=== PATIENT | male | born 1950 | race Caucasian/White ===

== ENCOUNTER 2018-03-15 10:58 | Inpatient (IN) | payer BC, OTHER ==
[2018-03-15] MEDS ORDERED: SODIUM CHLORIDE 0.9% 500 ML INFUS.BAG IV ONE (11:06)
--- NOTE | 2018-03-15 11:33 | PDOC ---
History of Present Illness - General History Source: Patient Exam Limitations: No Limitations - History of Present Illness Initial Comments: 03/15/18 13:01 67 yo M with no past medical hx (hasn't seen a doctor in 15-20 years) presents to the emergency department with worsening epigastric and RUQ abdominal pain. Per the patient, he has had epigastric pain over the past 3 weeks that has been intermittent and "acidic" in feeling. However, he had a quality change in pain this morning at approximately 8am. Per the patient, the pain was 10/10, sharp, located in the epigastric and RUQ without radiation, with minimal relief with omeprazole and pepto-bismal. Per the patient, he is unsure if eating or not eating aggravated or relieved his pain. Denies a hx of gallstones and pancreatitis. Patient denies the following: fever, chills, nausea, vomiting, dysuria, hematuria, diarrhea, and leg pain/swelling. No recent travels. Pmhx: None Shx: None Meds: None Allergies: NKDA Social: Endorses tobacco use. Denies alcohol and substance abuse. <Jovan Crews - Last Filed: 03/16/18 10:36> <Yoly Bill - Last Filed: 03/18/18 22:18> - General Chief Complaint: Pain Stated Complaint: ABDOMINAL PAIN 3 DAY WORSENING LAST 2 HOURS Time Seen by Provider: 03/15/18 11:05 Past History - Past Medical History COPD: Yes Other medical history: PROSTATIS - Suicide/Smoking/Psychosocial Hx Smoking History: Current every day smoker Have you smoked in the past 12 months: Yes Number of Cigarettes Smoked Daily: 10 Information on smoking cessation initiated: Yes Hx Alcohol Use: Yes (RARE) Drug/Substance Use Hx: No <oJvan Crews - Last Filed: 03/16/18 10:36> <Yoly Bill - Last Filed: 03/18/18 22:18> - Past Medical History Allergies/Adverse Reactions: Allergies Allergy/AdvReac Type Severity Reaction Status Date / Time No Known Allergies Allergy Verified 03/15/18 17:06 Home Medications: Ambulatory Orders Dextrose 5%-0.45% Saline [D5-1/2Ns -] 1,000 ml IV ASDIR #1 ml 03/16/18 Piperacillin/Tazob 3.375 gm [Zosyn -] 3.375 gm IVPB Q8H-IV vial 03/16/18 oxyCODONE HCL [Roxicodone -] 5 mg PO Q4H PRN #30 tablet MDD 6 03/16/18 Review of Systems - Review of Systems Able to Perform ROS?: Yes Is the patient limited O[place]i proficient: No Constitutional: No: Chills, Diaphoresis, Fever HEENTM: No: Recent change in vision, Ear Pain, Nose Pain, Throat Pain, Mouth Pain Respiratory: No: Cough, Shortness of Breath, SOB with Exertion, Hemoptysis Cardiac (ROS): No: Chest Pain, Lightheadedness, Palpitations, Syncope, Chest Tightness ABD/GI: Yes: Abdominal cramping. No: Constipated, Diarrhea, Nausea, Poor Appetite, Poor Fluid Intake, Rectal Bleeding, Vomiting, Tarry Stools : No: Burning, Dysuria, Hematuria, Urgency Musculoskeletal: No: Back Pain, Gout, Joint Pain, Neck Pain Integumentary: No: Erythema, Flushing, Lesions, Lumps, Rash Neurological: No: Headache, Numbness, Tingling, Tremors, Ataxia, Dizziness Psychiatric: No: Stressors Endocrine: No: Unexplained Weight Gain Hematologic/Lymphatic: No: Anemia <Jovan Crews - Last Filed: 03/16/18 10:36> *Physical Exam - Vital Signs Last Vital Signs Temp Pulse Resp BP Pulse Ox 98.9 F 74 20 136/76 96 03/15/18 11:00 03/15/18 11:00 03/15/18 11:00 03/15/18 11:00 03/15/18 11:00 - Physical Exam General Appearance: Yes: Nourished, Appropriately Dressed. No: Apparent Distress, Intoxicated HEENT: positive: EOMI, LARA, Normal ENT Inspection, Normal Voice, Symmetrical, Pharynx Normal, Hearing Grossly Normal. negative: Pale Conjunctivae, Scleral Icterus (R), Scleral Icterus (L), Muffled/Hoarse voice, Pharyngeal Erythema, Tonsillar Exudate, Tonsillar Erythema, Nasal Congestion, Sinus Tenderness, Excessive drooling Neck: positive: Trachea midline. negative: Tender, Lymphadenopathy (R), Lymphadenopathy (L), Tender lateral, Tender midline Respiratory/Chest: positive: Lungs Clear, Normal Breath Sounds. negative: Chest Tender, Respiratory Distress, Accessory Muscle Use, Crackles, Rales, Rhonchi, Stridor, Wheezing, Hyperresonant Cardiovascular: positive: Regular Rhythm, Regular Rate, S1, S2. negative: Systolic Murmur Gastrointestinal/Abdominal: positive: Normal Bowel Sounds, Tender (epigastric and RUQ. Positive murphys), Flat, Soft. negative: Distended, Rebound, Mass Lymphatic: negative: Adenopathy Musculoskeletal: positive: Normal Inspection. negative: CVA Tenderness, Vertebral Tenderness Extremity: positive: Normal Capillary Refill, Normal Inspection, Normal Range of Motion. negative: Tender Integumentary: positive: Normal Color, Dry, Warm Neurologic: positive: pan operator II-XII NML intact, Fully Oriented, Alert, Normal Mood/ Affect, Normal Response, Motor Strength 5/5. negative: EOM Palsy, Sensory Deficit <Jovan Crews - Last Filed: 03/16/18 10:36> - Vital Signs Last Vital Signs Temp Pulse Resp BP Pulse Ox 98.7 F 58 L 17 142/71 96 03/16/18 14:00 03/16/18 14:00 03/16/18 14:00 03/16/18 14:00 03/16/18 14:00 <Yoly Bill - Last Filed: 03/18/18 22:18> Moderate Sedation - Procedure Monitoring Vital Signs: Procedure Monitoring Vital Signs Temperature 98.9 F 03/15/18 11:00 Pulse Rate 74 03/15/18 11:00 Respiratory Rate 20 03/15/18 11:00 Blood Pressure 136/76 03/15/18 11:00 O2 Sat by Pulse Oximetry (%) 96 03/15/18 11:00 <Jovan Crews - Last Filed: 03/16/18 10:36> - Procedure Monitoring Vital Signs: Procedure Monitoring Vital Signs Temperature 98.7 F 03/16/18 14:00 Pulse Rate 58 L 03/16/18 14:00 Respiratory Rate 17 03/16/18 14:00 Blood Pressure 142/71 03/16/18 14:00 O2 Sat by Pulse Oximetry (%) 96 03/16/18 14:00 <Yoly Bill - Last Filed: 03/18/18 22:18> ED Treatment Course - LABORATORY CBC & Chemistry Diagram: 03/16/18 07:35 03/16/18 07:35 <Jovan Crews - Last Filed: 03/16/18 10:36> - LABORATORY CBC & Chemistry Diagram: 03/16/18 07:35 03/16/18 07:35 - ADDITIONAL ORDERS Additional order review: 03/15/18 11:42 RBC 4.48 MCV 89.4 MCHC 32.6 RDW 12.6 MPV 8.3 Neutrophils % No Result Required. Lymphocytes % No Result Required. - Medications Given in the ED: ED Medications Discontinued Medications Generic Name Dose Route Start Last Admin Trade Name Freq PRN Reason Stop Dose Admin Ceftriaxone Sodium 1,000 mg/ 50 mls @ 100 mls/hr 03/15/18 14:14 03/15/18 15: 25 Dextrose IVPB 03/15/18 14:43 100 mls/hr ONCE ONE Administration Metronidazole 500 mg in 100 mls @ 100 mls/hr 03/15/18 14:14 03/15/18 14:28 Flagyl 500mg Premixed Ivpb - IVPB 03/15/18 15:13 100 mls/hr ONCE ONE Administration Dextrose/Sodium Chloride 1,000 mls @ 125 mls/hr 03/15/18 16:30 03/16/18 18:27 D5-1/2ns - IV 125 mls/hr ASDIR SHAMA Administration Metronidazole 500 mg in 100 mls @ 100 mls/hr 03/15/18 22:00 03/16/18 18:26 Flagyl 500mg Premixed Ivpb - IVPB 100 mls/hr Q8H-IV SHAMA Administration Ceftriaxone Sodium 50 mls @ 100 mls/hr 03/16/18 10:00 03/16/18 10:08 Ceftriaxone 1 Gm-D5w Bag IVPB 100 mls/hr DAILY SHAMA Administration Protocol Piperacillin Sod/Tazobactam 50 mls @ 100 mls/hr 03/16/18 18:00 03/16/18 18:26 Sod 3.375 gm/ Dextrose IVPB 100 mls/hr Q8H-IV SHAMA Administration Protocol Oxycodone HCl 5 mg 03/16/18 13:22 03/16/18 13:29 Roxicodone - PO 5 mg Q4H PRN Administration PAIN LEVEL 6-10 Sodium Chloride 1,000 ml 03/15/18 11:06 03/15/18 12:19 Normal Saline - IV 03/15/18 11:07 1,000 ml ONCE ONE Administration <Yoly Bill - Last Filed: 03/18/18 22:18> Medical Decision Making - Medical Decision Making 67 yo M with no past medical hx (hasn't seen a doctor in 15-20 years) presents to the emergency department with worsening epigastric and RUQ abdominal pain. Initial vitals: Initial Vital Signs Temp Pulse Resp BP Pulse Ox 98.9 F 74 20 136/76 96 03/15/18 11:00 03/15/18 11:00 03/15/18 11:00 03/15/18 11:00 03/15/18 11:00 Work up: ddx: cholelithiasis, cholecystitis, nephrolithiasis, pyelo, GERD, pancreatitis, gastritis, ACS, UTI, SBO, hernia, AAA. Laboratory Tests 03/15/18 03/15/18 03/15/18 11:42 11:42 11:42 WBC 14.2 H RBC 4.48 Hgb 13.1 Hct 40.1 MCV 89.4 MCH 29.2 MCHC 32.6 RDW 12.6 Plt Count 262 MPV 8.3 Absolute Neuts (auto) 10.0 Neutrophils % No Result Required. Neutrophils % (Manual) 77.0 Lymphocytes % No Result Required. Lymphocytes % (Manual) 16.0 Monocytes % (Manual) 5 Eosinophils % (Manual) 2.0 Platelet Estimate Adequate Sodium 138 Potassium 3.9 Chloride 105 Carbon Dioxide 23 Anion Gap 10 BUN 22 H Creatinine 1.1 Creat Clearance w eGFR > 60 Random Glucose 168 H Lactic Acid 1.9 Calcium 9.2 Total Bilirubin 2.4 H AST 178 H ALT 92 H Alkaline Phosphatase 340 H Creatine Kinase Troponin I Total Protein 6.4 Albumin 3.4 L Lipase 142 03/15/18 03/15/18 11:42 11:42 WBC RBC Hgb Hct MCV MCH MCHC RDW Plt Count MPV Absolute Neuts (auto) Neutrophils % Neutrophils % (Manual) Lymphocytes % Lymphocytes % (Manual) Monocytes % (Manual) Eosinophils % (Manual) Platelet Estimate Sodium Potassium Chloride Carbon Dioxide Anion Gap BUN Creatinine Creat Clearance w eGFR Random Glucose Lactic Acid Calcium Total Bilirubin AST ALT Alkaline Phosphatase Creatine Kinase 45 Troponin I 0.03 Total Protein Albumin Lipase This is a gentlemen appearing well with no vital sign abnormalities. The patients labs show WBC elevation of 14.2 with elevated LFT values. CXR did not show acute pathologies. patient has a positive murphys sign and was sent for an abdominal ultrasound that showed gallbladder thickening, edema, a 2.9 cm stone with concerns for cholecystitis. 03/15/18 14:36 Dr. Gregg was contacted for surgery consult. Wants ID consult and MRCP to be done Patient to be admitted for further evaluation and management of acute cholecystitis. started ceftriaxone and metronidazole Dispo: Admitted. <Jovan Crews - Last Filed: 03/16/18 10:36> *DC/Admit/Observation/Transfer <Jovan Crews - Last Filed: 03/16/18 10:36> <Yoly Bill - Last Filed: 03/18/18 22:18> Diagnosis at time of Disposition: Cholecystitis - Discharge Dispostion Disposition: TRANSFER ACUTE CARE/OTHER HOSP Condition at time of disposition: Stable
[2018-03-15 11:56] LABS: HEMATOCRIT 40.1 % (35.4-49); RBC 4.48 M/mm3 (4.00-5.60)
[2018-03-15 12:02] LABS: HEMOGLOBIN 13.1 GM/dl (11.7-16.9); MCH 29.2 pg (25.7-33.7); MCHC 32.6 g/dl (32.0-35.9); MEAN CELL VOLUME 89.4 fl (80-96); MEAN PLT VOLUME 8.3 fl (7.5-11.1); PLATELET COUNT 262 K/MM3 (134-434); RDW 12.6 % (11.9-15.9); WHITE BLOOD COUNT 14.2 K/mm3 (4.0-10.8)
[2018-03-15 12:10] LABS: ALBUMIN 3.4 g/dl (3.5-5.0); ALK PHOS 340 U/L (32-92); ANION GAP 10 MMOL/L (8-16); BILIRUBIN,TOTAL 2.4 mg/dl (0.2-1.0); BLOOD UREA NITROGEN 22 mg/dl (7-18); CALCIUM 9.2 mg/dl (8.4-10.2); CHLORIDE 105 mmol/L (98-107); CO2 23 mmol/L (22-28); CREATININE 1.1 mg/dl (0.6-1.3); GLUCOSE,RANDOM 168 mg/dl (74-106); POTASSIUM 3.9 mmol/L (3.5-5.1); SGOT/AST 178 U/L (10-42); SGPT/ALT 92 U/L (10-40); SODIUM 138 mmol/L (136-145); TOT PROT 6.4 g/dl (6.4-8.3)
[2018-03-15 12:33] LABS: PLATELET ESTIMATE ADEQUATE
--- NOTE | 2018-03-15 13:15 | PDOC ---
Attending Attestation - Resident Resident Name: MarsJovan - ED Attending Attestation I have performed the following: I have examined & evaluated the patient, The case was reviewed & discussed with the resident, I agree w/resident's findings & plan - HPI HPI: 03/15/18 13:12 MARGARET is a 67 YOM with no known medical history presenting with epigastric /RUQ abdominal pain, a/w constipation x 3 days. No fever or chills, no vomiting/ diarrhea, dysuria or diarrhea. No PMD. no surgical history. +smoking - Physicial Exam PE: 03/15/18 13:13 NAD, well appearing, PERRL, EOMI, MMM, nl conjunctiva, anicteric; neck supple. lungs clear, RRR, abdomen soft +Sanchez's sign, +epigastric TTP. no rebound or guarding. NO CVAT.. MAST x4, no focal neuro deficits. No peripheral edema. normal color for ethnicity, WWP. - Medical Decision Making 03/15/18 13:13 See HPI for details DDx abdominal pain: Renal colic, biliary colic, metabolic/electrolyte derangements. GERD, PUD, esophageal spasm, pancreatitis, hepatitis, constipation , colitis, gastroenteritis, cholecystitis, UTI, pyelonephritis, ileus, SBO, medication side effect, hernia, appendicitis, diverticulitis, mesenteric ischemia. AAA. Vital signs reviewed, wnl. no fever, declines analgesia meds for now laboratory results and imaging reviewed, basic labs remarkable for leukocytosis of 14K, Cr/lytes normal. LFTs/bili elevated, with AST>ALT, however , no etoh use history. CXR_clear EKG normal sinus rhythm, no interval abnormalities, narrow QRS, ST and T wave segments and morphology normal. Nonspecific T wave abnormalities trop neg, less likely cardiac/ACS ED course: concerns for sx cholelithiasis vs cholecystitis. RUQ/abdomen US: with obstructed large stones at gallbladder neck with pericystic fluid/wall edema. aorta diameter<3cm, so unlikely AAA/vascular. IV fluids and IV abx with ceftriaxone/flagyl for empiric coverage. keeping NPO. surgery cs with Dr Gregg for acute management/surgery. would like MRCP, GI/ID cs as inpatient. Dispo: Admit to medicine for acute cholecystitis, surgery cs.. Discussed results and management plan with pt and family member at bedside, agree with impression and plan 03/15/18 15:30 Heart Score/ECG Review - ECG Impressions Normal ECG: Yes Comment:: 03/15/18 13:14 EKG normal sinus rhythm, no interval abnormalities, narrow QRS, ST and T wave segments and morphology normal. Nonspecific T wave abnormalities
[2018-03-15] MEDS ORDERED: CEFTRIAXONE 1,000 MG in DEXTROSE 5%-WATER - 50 ML IVPB ONE (14:14)
[2018-03-15] MEDS ORDERED: cefTRIAXone SODIUM 1 GM VIAL ONE (14:18)
[2018-03-15 14:56] LABS: URINE APPEARANCE Clear; URINE BILIRUBIN Negative (NEGATIVE); URINE COLOR Amber; URINE GLUCOSE (UA) Negative (NEGATIVE); URINE KETONE Negative (NEGATIVE); URINE LEUK ESTERASE TRACE (NEGATIVE); URINE NITRITE Negative (NEGATIVE); URINE PROTEIN Negative (NEGATIVE)
[2018-03-15 15:45] LABS: URINE WBC 0-2 (0-2)
--- NOTE | 2018-03-15 16:00 | HP ---
CHIEF COMPLAINT: Severe abdominal pain this morning for 40 minutes. PCP: None - has not seen a health care provider in 15-20 years HISTORY OF PRESENT ILLNESS: 67 year-old male with no reported PMH presented to the ED today after acute onset of RUQ abdominal pain. The pain started this morning and continued until patient arrived in ED. Pain lasted 40 minutes, resolved spontaneously, and has not recurred. Patient has had episodes of abdominal pain, not as severe, over the past 3-4 weeks. There has been no associated nausea or vomiting. Patient does not relate the pain to food intake or lack thereof. Patient denies fever, sweats, chills. Had two episodes of diarrhea three days ago. ER course was notable for: (1) WBC 14.2k (2) Total bili 2.4, AST/ALT/Alk Phos 178/92/340, lipase 142 Recent Travel: [place] - October 2017 [place] - November 2017 PAST MEDICAL HISTORY: None reported PAST SURGICAL HISTORY: None reported Social History: lives with Smoking: current every day x 30 years Alcohol: rare Drugs: no Family History: Allergies No Known Allergies Allergy (Unverified 03/15/18 11:01). HOME MEDICATIONS: Home Medications Medication Instructions Recorded Omeprazole 1 cap PO PRN 03/15/18 Pepto-Bismol - 1 tsp PO PRN PRN 03/15/18 REVIEW OF SYSTEMS CONSTITUTIONAL: Absent: fever, chills, diaphoresis, generalized weakness, malaise, loss of appetite, weight change HEENT: Absent: rhinorrhea, nasal congestion, throat pain, throat swelling, difficulty swallowing, mouth swelling, ear pain, eye pain, visual changes CARDIOVASCULAR: Absent: chest pain, syncope, palpitations, irregular heart rate, lightheadedness , peripheral edema RESPIRATORY: Absent: cough, shortness of breath, dyspnea with exertion, orthopnea, wheezing, stridor, hemoptysis GASTROINTESTINAL: +abdominal pain Absent: abdominal distension, nausea, vomiting, diarrhea, constipation, melena, hematochezia GENITOURINARY: Absent: dysuria, frequency, urgency, hesitancy, hematuria, flank pain, genital pain MUSCULOSKELETAL: Absent: myalgia, arthralgia, joint swelling, back pain, neck pain SKIN: Absent: rash, itching, pallor HEMATOLOGIC/IMMUNOLOGIC: Absent: easy bleeding, easy bruising, lymphadenopathy, frequent infections ENDOCRINE: Absent: unexplained weight gain, unexplained weight loss, heat intolerance, cold intolerance NEUROLOGIC: Absent: headache, focal weakness or paresthesias, dizziness, unsteady gait, seizure, mental status changes, bladder or bowel incontinence PSYCHIATRIC: Absent: anxiety, depression, suicidal or homicidal ideation, hallucinations. PHYSICAL EXAMINATION Vital Signs - 24 hr 03/15/18 03/15/18 03/15/18 11:00 12:20 15:34 Temperature 98.9 F 98.5 F Pulse Rate 74 Pulse Rate [ 62 68 Left Superficial Temporal] Respiratory 20 18 16 Rate Blood Pressure 136/76 Blood Pressure 112/67 108/68 [Left Arm] O2 Sat by Pulse 96 99 Oximetry (%) GENERAL: Awake, alert, and fully oriented, in no acute distress. HEAD: Normal with no signs of trauma. EYES: Pupils equal, round and reactive to light, extraocular movements intact, sclera anicteric, conjunctiva clear. No lid lag. EARS, NOSE, THROAT: Ears normal, nares patent, oropharynx clear without exudates. Moist mucous membranes. NECK: Normal range of motion, supple without lymphadenopathy, JVD, or masses. LUNGS: Breath sounds equal, clear to auscultation bilaterally. No wheezes, and no crackles. No accessory muscle use. HEART: Regular rate and rhythm, normal S1 and S2 without murmur, rub or gallop. ABDOMEN: Soft, mild RUQ tenderness MUSCULOSKELETAL: Normal range of motion at all joints. No bony deformities or tenderness. No CVA tenderness. UPPER EXTREMITIES: 2+ pulses, warm, well-perfused. No cyanosis. No clubbing. No peripheral edema. LOWER EXTREMITIES: 2+ pulses, warm, well-perfused. No calf tenderness. No peripheral edema. NEUROLOGICAL: Cranial nerves II-XII intact. Normal speech. Laboratory Results - last 24 hr 03/15/18 03/15/18 03/15/18 11:42 11:42 11:42 WBC 14.2 H RBC 4.48 Hgb 13.1 Hct 40.1 MCV 89.4 MCH 29.2 MCHC 32.6 RDW 12.6 Plt Count 262 MPV 8.3 Absolute Neuts (auto) 10.0 Neutrophils % No Result Required. Neutrophils % (Manual) 77.0 Lymphocytes % No Result Required. Lymphocytes % (Manual) 16.0 Monocytes % (Manual) 5 Eosinophils % (Manual) 2.0 Platelet Estimate Adequate Sodium 138 Potassium 3.9 Chloride 105 Carbon Dioxide 23 Anion Gap 10 BUN 22 H Creatinine 1.1 Creat Clearance w eGFR > 60 Random Glucose 168 H Lactic Acid 1.9 Calcium 9.2 Total Bilirubin 2.4 H AST 178 H ALT 92 H Alkaline Phosphatase 340 H Creatine Kinase Troponin I Total Protein 6.4 Albumin 3.4 L Urine Color Urine Appearance Urine pH Ur Specific [place] Urine Protein Urine Glucose (UA) Urine Ketones Urine Blood Urine Nitrite Urine Bilirubin Urine Urobilinogen Ur Leukocyte Esterase Urine RBC Urine WBC 03/15/18 03/15/18 03/15/18 11:42 11:42 14:51 WBC RBC Hgb Hct MCV MCH MCHC RDW Plt Count MPV Absolute Neuts (auto) Neutrophils % Neutrophils % (Manual) Lymphocytes % Lymphocytes % (Manual) Monocytes % (Manual) Eosinophils % (Manual) Platelet Estimate Sodium Potassium Chloride Carbon Dioxide Anion Gap BUN Creatinine Creat Clearance w eGFR Random Glucose Lactic Acid Calcium Total Bilirubin AST ALT Alkaline Phosphatase Creatine Kinase 45 Troponin I 0.03 Total Protein Albumin Urine Color Trish Urine Appearance Clear Urine pH 6.0 Ur Specific [place] 1.010 Urine Protein Negative Urine Glucose (UA) Negative Urine Ketones Negative Urine Blood Negative Urine Nitrite Negative Urine Bilirubin Negative Urine Urobilinogen 1.0 Ur Leukocyte Esterase Trace H Urine RBC No Result Required. Urine WBC 0-2 ASSESSMENT/PLAN: 67 year-old male with no reported significant PMH, admitted for abdominal pain, cholelithiasis, hyperbilirubinemia, and elevated transaminases. Abdominal pain Cholelithiasis --03/15 US abdomen: thick-walled gallbladder with multiple calculi; acute cholecystitis cannot be ruled out --03/15 MRCP: done, pending dictation --afebrile, elevated WBC 14.2k on admission --continue empiric ceftriaxone, metronidazole --surgery following --patient has not seen a health care provider in 15-20 years; cardiology consult requested for pre-op evaluation; echo ordered; ECG and CXR done Hyperbilirubinemia Elevated transaminases --continue to trend FEN Fluids: D51/2@125mL/hr Electrolytes: replete as indicated Nutrition: NPO DVT prophylaxis: SCDs, oob, ambulation Dispo: continues to require inpatient care. Full code. Visit type - Emergency Visit Emergency Visit: Yes ED Registration Date: 03/15/18 Care time: The patient presented to the Emergency Department on the above date and was hospitalized for further evaluation of their emergent condition. - New Patient This patient is new to me today: Yes Date on this admission: 03/15/18 - Critical Care Critical Care patient: No
[2018-03-15 17:36] VITALS: BMI 61.8
[2018-03-15] MEDS: DEXTROSE 5%-0.45% SALINE 1,000 ML IV SCH (17:39)
[2018-03-15 18:45] LABS: LIPASE 142 U/L (73-393)
[2018-03-16 08:11] LABS: INR 1.27 (0.82-1.09); PROTHROMBIN TIME (PATIENT) 14.1 SEC (10.2-13.0)
[2018-03-16 08:13] LABS: BASO % 0.3 % (0-2.0); EOS % 2.3 % (0-4.5); HEMATOCRIT 34.7 % (35.4-49); HEMOGLOBIN 11.4 GM/dl (11.7-16.9); LYMPH % 38.4 % (8-40); MEAN CELL VOLUME 90.9 fl (80-96); MEAN PLT VOLUME 8.2 fl (7.5-11.1); MONO % 7.5 % (3.8-10.2); NEUT % 51.5 % (42.8-82.8); PLATELET COUNT 242 K/MM3 (134-434); RBC 3.82 M/mm3 (4.00-5.60); RDW 12.9 % (11.9-15.9)
[2018-03-16 08:25] LABS: ANION GAP 5 MMOL/L (8-16); BLOOD UREA NITROGEN 11 mg/dl (7-18); CALCIUM 8.3 mg/dl (8.4-10.2); CHLORIDE 111 mmol/L (98-107); CO2 24 mmol/L (22-28); CREATININE 0.8 mg/dl (0.6-1.3); GLUCOSE,RANDOM 106 mg/dl (74-106); POTASSIUM 4.1 mmol/L (3.5-5.1); SODIUM 140 mmol/L (136-145)
[2018-03-16 08:26] LABS: ALBUMIN 2.6 g/dl (3.5-5.0); BILIRUBIN,TOTAL 2.3 mg/dl (0.2-1.0); MAGNESIUM 2.1 mg/dL (1.8-2.4); PHOSPHOROUS 3.1 mg/dl (2.5-4.6); TOT PROT 5.3 g/dl (6.4-8.3)
--- NOTE | 2018-03-16 09:21 | CONSULT ---
- Consultation REQUESTING PROVIDER: Fernando Crews MD CONSULT REQUEST: We have been asked to surgically evaluate this patient for RUQ abdominal pain w/associated nausea and vomiting. vomiy PCP:Evi Bullard * HISTORY OF PRESENT ILLNESS: 4 days of progressive and unrelenting sharp RUQ abdominal pain associated w/nausea and vomiting after eating; he has NOC; he denies dark urine and/or light stools; he has not seen a physician in over 10 years; pain radiatd to his back and right shoulder; the hx. is o/w unremarkable w/r/t/ and/or other GI c/o's. PMHx: none PSHx: none Home Medications Medication Instructions Recorded Omeprazole 1 cap PO PRN 03/15/18 Pepto-Bismol - 1 tsp PO PRN PRN 03/15/18 Allergies Allergy/AdvReac Type Severity Reaction Status Date / Time No Known Allergies Allergy Verified 03/15/18 17:06 REVIEW OF SYSTEMS: CONSTITUTIONAL: Absent: fever, chills, diaphoresis, generalized weakness, malaise, loss of appetite, weight change CARDIOVASCULAR: Absent: chest pain, syncope, palpitations, irregular heart rate, lightheadedness , peripheral edema RESPIRATORY: Absent: cough, shortness of breath, dyspnea with exertion, wheezing, stridor, hemoptysis GASTROINTESTINAL: Absent: abdominal pain, abdominal distension, nausea, vomiting, diarrhea, constipation, melena, hematochezia GENITOURINARY: Absent: dysuria, frequency, urgency, hesitancy, hematuria, flank pain, genital pain MUSCULOSKELETAL: Absent: myalgia, arthralgia, joint swelling, back pain, neck pain SKIN: Absent: rash, itching, pallor HEMATOLOGIC/IMMUNOLOGIC: Absent: easy bleeding, easy bruising, lymphadenopathy NEUROLOGIC: Absent: headache, focal weakness, paresthesias, dizziness, unsteady gait, seizure, mental status changes, bladder or bowel incontinence PSYCHIATRIC: Absent: anxiety, depression, suicidal or homicidal ideation, hallucinations. PHYSICAL EXAM: GENERAL: Awake, alert, and fully oriented, in no acute distress. HEAD: Normal with no signs of trauma. EYES: PERRL, sclera anicteric, conjunctiva clear. NECK: Normal ROM, supple without lymphadenopathy, JVD, or masses. ABDOMEN: Soft, tender RUQ, not distended, normoactive bowel sounds, minimal guarding in RUQ, no rebound, no masses. No organomegaly. No hernias; no scars MUSCULOSKELETAL: Normal ROM at all joints. No bony deformities or tenderness. No CVA tenderness. UPPER EXTREMITIES: 2+ pulses, warm, well-perfused. No cyanosis. Cap refill <2 seconds. No peripheral edema. LOWER EXTREMITIES: 2+ pulses, warm, well-perfused. No calf tenderness. No peripheral edema. NEUROLOGICAL: Normal speech, gait not observed. PSYCH: Cooperative. Good eye contact. Appropriate mood and affect. SKIN: Warm, dry, normal turgor, no rashes or lesions noted. Vital Signs Temperature 98.7 F 03/16/18 06:00 Pulse Rate 67 03/16/18 06:00 Respiratory Rate 19 03/16/18 06:00 Blood Pressure 105/57 L 03/16/18 06:00 O2 Sat by Pulse Oximetry (%) 95 03/15/18 22:00 Lab Results WBC 9.0 K/mm3 (4.0-10.8) 03/16/18 07:35 RBC 3.82 M/mm3 (4.00-5.60) L 03/16/18 07:35 Hgb 11.4 GM/dl (11.7-16.9) L 03/16/18 07:35 Hct 34.7 % (35.4-49) L 03/16/18 07:35 MCV 90.9 fl (80-96) 03/16/18 07:35 MCHC 33.0 g/dl (32.0-35.9) 03/16/18 07:35 RDW 12.9 % (11.9-15.9) 03/16/18 07:35 Plt Count 242 K/MM3 (134-434) 03/16/18 07:35 Sodium 140 mmol/L (136-145) 03/16/18 07:35 Potassium 4.1 mmol/L (3.5-5.1) 03/16/18 07:35 Chloride 111 mmol/L (98-107) H 03/16/18 07:35 Carbon Dioxide 24 mmol/L (22-28) 03/16/18 07:35 Anion Gap 5 MMOL/L (8-16) L 03/16/18 07:35 BUN 11 mg/dl (7-18) 03/16/18 07:35 Creatinine 0.8 mg/dl (0.6-1.3) 03/16/18 07:35 Random Glucose 106 mg/dl (74-106) D 03/16/18 07:35 Calcium 8.3 mg/dl (8.4-10.2) L 03/16/18 07:35 INR 1.27 (0.82-1.09) H 03/16/18 07:35 LFT's and bilirubin elevated US reviewed-cholelithiasis; non dilated ducts; acute cholecystitis IMP:cholelithiasis; acute cholecystitis; possible Mirizzi syndrome PLAN: NPO/IVF/IVABS/trend LFT's and bilirubin/MRCP/+/-GI evaluation for ERCP pending MRCP results and eventual lap ludy; d/w patient and his in depth. Dayday Gregg MD FACS
[2018-03-16] MEDS ORDERED: CEFTRIAXONE 1 GM in DEXTROSE 5%-WATER - 50 ML IVPB SCH (10:00)
[2018-03-16] MEDS ORDERED: CEFTRIAXONE 1 G/50 ML PREMIX 50 ML IVPB SCH (10:00)
--- NOTE | 2018-03-16 11:22 | SPA.PREOP ---
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 Planned Procedure: laparoscopic Cholecystectomy Surgeon: Cristino Last Vital Signs Temp Pulse Resp BP Pulse Ox 98.8 F 54 L 18 104/56 L 97 03/16/18 10:00 03/16/18 10:00 03/16/18 10:00 03/16/18 10:00 03/16/18 10:00 Lab Results WBC 9.0 K/mm3 (4.0-10.8) 03/16/18 07:35 RBC 3.82 M/mm3 (4.00-5.60) L 03/16/18 07:35 Hgb 11.4 GM/dl (11.7-16.9) L 03/16/18 07:35 Hct 34.7 % (35.4-49) L 03/16/18 07:35 MCV 90.9 fl (80-96) 03/16/18 07:35 MCHC 33.0 g/dl (32.0-35.9) 03/16/18 07:35 RDW 12.9 % (11.9-15.9) 03/16/18 07:35 Plt Count 242 K/MM3 (134-434) 03/16/18 07:35 Sodium 140 mmol/L (136-145) 03/16/18 07:35 Potassium 4.1 mmol/L (3.5-5.1) 03/16/18 07:35 Chloride 111 mmol/L (98-107) H 03/16/18 07:35 Carbon Dioxide 24 mmol/L (22-28) 03/16/18 07:35 Anion Gap 5 MMOL/L (8-16) L 03/16/18 07:35 BUN 11 mg/dl (7-18) 03/16/18 07:35 Creatinine 0.8 mg/dl (0.6-1.3) 03/16/18 07:35 Random Glucose 106 mg/dl (74-106) D 03/16/18 07:35 Calcium 8.3 mg/dl (8.4-10.2) L 03/16/18 07:35 Blood Type O POSITIVE 03/16/18 07:05 Antibody Screen Negative 03/16/18 07:00 INR 1.27 (0.82-1.09) H 03/16/18 07:35 - ASSESSMENT/PLAN <Trish Henderson - Last Filed: 03/16/18 11:14> - PRE-OP NOTE Dx: Planned Procedure: Surgeon: Last Vital Signs Temp Pulse Resp BP Pulse Ox 98.7 F 58 L 17 142/71 96 03/16/18 14:00 03/16/18 14:00 03/16/18 14:00 03/16/18 14:00 03/16/18 14:00 Lab Results WBC 9.0 K/mm3 (4.0-10.8) 03/16/18 07:35 RBC 3.82 M/mm3 (4.00-5.60) L 03/16/18 07:35 Hgb 11.4 GM/dl (11.7-16.9) L 03/16/18 07:35 Hct 34.7 % (35.4-49) L 03/16/18 07:35 MCV 90.9 fl (80-96) 03/16/18 07:35 MCHC 33.0 g/dl (32.0-35.9) 03/16/18 07:35 RDW 12.9 % (11.9-15.9) 03/16/18 07:35 Plt Count 242 K/MM3 (134-434) 03/16/18 07:35 Sodium 140 mmol/L (136-145) 03/16/18 07:35 Potassium 4.1 mmol/L (3.5-5.1) 03/16/18 07:35 Chloride 111 mmol/L (98-107) H 03/16/18 07:35 Carbon Dioxide 24 mmol/L (22-28) 03/16/18 07:35 Anion Gap 5 MMOL/L (8-16) L 03/16/18 07:35 BUN 11 mg/dl (7-18) 03/16/18 07:35 Creatinine 0.8 mg/dl (0.6-1.3) 03/16/18 07:35 Random Glucose 106 mg/dl (74-106) D 03/16/18 07:35 Calcium 8.3 mg/dl (8.4-10.2) L 03/16/18 07:35 Blood Type O POSITIVE 03/16/18 07:05 Antibody Screen Negative 03/16/18 07:00 INR 1.27 (0.82-1.09) H 03/16/18 07:35 - ASSESSMENT/PLAN 1. Make NPO after midnight except po meds 2. GI/DVT PPX 3. Medical optimization / clearance 4. Consent to be obtained by surgeon after risks, benefits and alternatives discussed with patient and or Health Care Proxy. Attending Surgeon OR cancelled based on MRCP findings s/o possible malignancy; arrangements have been made to xfer the patient to a hepatobiliary surgeon at [facility] for further evaluation and management. Dayday Gregg MD FACS <Dayday Gregg - Last Filed: 03/17/18 09:22> Problem List - Problems (1) Cholecystitis Assessment/Plan: 1 Make NPO after midnight except po meds 2. GI/DVT PPX 3. Medical optimization / clearance 4. Consent to be obtained by surgeon after risks, benefits and alternatives discussed with patient and or Health Care Proxy. Code(s): K81.9 - CHOLECYSTITIS, UNSPECIFIED <Trish Henderson - Last Filed: 03/16/18 11:14>
--- NOTE | 2018-03-16 12:15 | EKG ---
Test Reason : Blood Pressure : / mmHG Vent. Rate : 073 BPM Atrial Rate : 073 BPM P-R Int : 144 ms QRS Dur : 088 ms QT Int : 390 ms P-R-T Axes : 045 030 043 degrees QTc Int : 429 ms NORMAL SINUS RHYTHM NORMAL ECG NO PREVIOUS ECGS AVAILABLE Confirmed by LORENE HARO MD ([id number]) on 03/16/2018 12:15:50 PM Referred By: Bay Walsh Confirmed By:LORENE HARO MD
--- NOTE | 2018-03-16 12:40 | ECHO ---
Name: BONILLA ROBLES Exam:Adult Echocardiogram Study Date: 03/16/2018 08:39 AM Age: 67 yrs Reason For Study: PRE-OP Height: 67 in Weight: 185 lb BSA: 2.0 m2 MMode/2D Measurements & Calculations LVIDd: 3.5 cm Ao root diam: 3.4 cm LVIDs: 2.2 cm LA dimension: 3.5 cm EDV(Teich): 49.5 ml LVOT diam: 2.0 cm ESV(Teich): 15.3 ml Doppler Measurements & Calculations MV E max jina: 78.6 cm/sec Ao V2 max: 185.2 cm/sec MV A max jina: 82.8 cm/sec Ao max P.7 mmHg MV E/A: 0.95 TEE(V,D): 2.4 cm2 LV V1 max P.9 mmHg LV V1 max: 140.4 cm/sec Procedure A complete two-dimensional transthoracic echocardiogram was performed (2D, M-mode, Doppler and color flow Doppler). Left Ventricle The left ventricular size, thickness and function are normal. The left ventricular ejection fraction is normal. Ejection Fraction = 60-65%. The left ventricular wall motion is normal. Right Ventricle The right ventricle is normal in size and function. Atria Normal left and right atrial size and function. Mitral Valve There is no mitral regurgitation noted. Tricuspid Valve There is trace tricuspid regurgitation. There was insufficient TR detected to calculate RV systolic p ressure. Aortic Valve No hemodynamically significant valvular aortic stenosis. No aortic regurgitation is present. Pulmonic Valve There is no pulmonic valvular regurgitation. Great Vessels The aortic root is normal size. Pericardium/Pleura There is no pericardial effusion. Interpretation Summary The left ventricular size, thickness and function are normal The right ventricle is normal in size and function. There is trace tricuspid regurgitation. MD Javier Nava 03/16/2018 12:39 PM
[2018-03-16] MEDS ORDERED: oxyCODONE HCL 5 MG TABLET PO PRN (13:22)
[2018-03-16 14:38] VITALS: BP 142/71; PULSE 58; TEMP 98.7
[2018-03-16] MEDS ORDERED: PIPERACILLIN/TAZOB 3.375 GM 3.375 GM in DEXTROSE 5%-WATER - 50 ML IVPB SCH ×3 (14:45→18:00)
[2018-03-16] MEDS ORDERED: PIPERACILLIN/TAZOB 3.375 GM 3.375 GM in DEXTROSE 5%-WATER - 50 ML IVPB ONE (15:00)
--- NOTE | 2018-03-16 15:07 | CON.CARD ---
Consult Consult Specialty:: Cardiology Referred by:: Juan Miguel Reason for Consultation:: preop - History of Present Illness Chief Complaint: abd pain History of Present Illness: 67M no PMH, has not seen doctors in many years p/w abd pain, leukocytosis, abnl LFTs. Imaging concerning for gallstones, malignancy. No chest pain, palps, dizziness, lightheadedness, dyspnea, edema. Prior to admission he was active, walking Plan now to transfer patient to [facility] for further management. - Alcohol/Substance Use Hx Alcohol Use: Yes (RARE) - Smoking History Smoking history: Current every day smoker Have you smoked in the past 12 months: Yes Aproximately how many cigarettes per day: 10 Home Medications - Allergies Allergies/Adverse Reactions: Allergies Allergy/AdvReac Type Severity Reaction Status Date / Time No Known Allergies Allergy Verified 03/15/18 17:06 - Home Medications Home Medications: Ambulatory Orders Omeprazole 1 cap PO PRN 03/15/18 Pepto-Bismol - 1 tsp PO PRN PRN 03/15/18 Family Disease History - Family Disease History Family History: Unremarkable Review of Systems - Review of Systems Constitutional: reports: No Symptoms Eyes: reports: No Symptoms HENT: reports: No Symptoms Neck: reports: No Symptoms Cardiovascular: reports: No Symptoms Gastrointestinal: reports: Abdominal Pain Genitourinary: reports: No Symptoms Musculoskeletal: reports: No Symptoms Integumentary: reports: No Symptoms Neurological: reports: No Symptoms Endocrine: reports: No Symptoms Hematology/Lymphatic: reports: No Symptoms Psychiatric: reports: No Symptoms Vital Signs: Vital Signs Temperature 98.7 F 03/16/18 14:00 Pulse Rate 58 L 03/16/18 14:00 Respiratory Rate 17 03/16/18 14:00 Blood Pressure 142/71 03/16/18 14:00 O2 Sat by Pulse Oximetry (%) 96 03/16/18 14:00 Constitutional: Yes: No Distress, Calm Eyes: Yes: Conjunctiva Clear, EOM Intact HENT: Yes: Atraumatic, Normocephalic Neck: Yes: Supple, Trachea Midline Respiratory: Yes: Regular, CTA Bilaterally Gastrointestinal: Yes: Normal Bowel Sounds, Soft Cardiovascular: Yes: Regular Rate and Rhythm Heart Sounds: Yes: S1, S2 Musculoskeletal: No: Back Pain Extremities: No: Cold Edema: No Peripheral Pulses WNL: Yes Peripheral Pulses: 2+ Left Carotid, 2+ Right Carotid, 2+ Left Doralis Pedis, 2+ Right Dorsalis Pedis Integumentary: No: Jaundice Neurological: Yes: Alert, Oriented Psychiatric: Yes: Alert, Oriented - Other Data Labs, Other Data: CBC, BMP 03/16/18 07:35 03/16/18 07:35 INR, PTT INR 1.27 (0.82-1.09) H 03/16/18 07:35 Assessment/Plan echo 02/2018 nl LV/RV size and function, tr TR EKG sinus, no ischemic changes Preoperative evaluation - patient to be transferred to tertiary care center for further management - EKG and echo unremarkable, asymptomatic - stable from cardiac perspective for possible cholecystectomy, although plan pending further workup at this point given possible malignancy on imaging
--- NOTE | 2018-03-16 15:34 | DS ---
Physical Exam: SUBJECTIVE: Patient seen and examined at bedside. No further episodes of abdominal pain. OBJECTIVE: Vital Signs Period Temp Pulse Resp BP Sys/Collins Pulse Ox Last 24 Hr 98.1 F-99.6 F 54-75 16-19 93-142/46-71 95-99 PHYSICAL EXAM GENERAL: Awake, alert, and fully oriented, in no acute distress. HEAD: Normal with no signs of trauma. EYES: Pupils equal, round and reactive to light, extraocular movements intact, sclera anicteric, conjunctiva clear. No lid lag. EARS, NOSE, THROAT: Ears normal, nares patent, oropharynx clear without exudates. Moist mucous membranes. NECK: Normal range of motion, supple without lymphadenopathy, JVD, or masses. LUNGS: Breath sounds equal, clear to auscultation bilaterally. No wheezes, and no crackles. No accessory muscle use. HEART: Regular rate and rhythm, normal S1 and S2 without murmur, rub or gallop. ABDOMEN: Soft, mild RUQ tenderness MUSCULOSKELETAL: Normal range of motion at all joints. No bony deformities or tenderness. No CVA tenderness. UPPER EXTREMITIES: 2+ pulses, warm, well-perfused. No cyanosis. No clubbing. No peripheral edema. LOWER EXTREMITIES: 2+ pulses, warm, well-perfused. No calf tenderness. No peripheral edema. NEUROLOGICAL: Cranial nerves II-XII intact. Normal speech. LABS Laboratory Tests 03/15/18 03/15/18 03/15/18 11:42 11:42 11:42 WBC 14.2 H RBC 4.48 Hgb 13.1 Hct 40.1 MCV 89.4 MCH 29.2 MCHC 32.6 RDW 12.6 Plt Count 262 MPV 8.3 Absolute Neuts (auto) 10.0 Neutrophils % No Result Required. Neutrophils % (Manual) 77.0 Lymphocytes % No Result Required. Lymphocytes % (Manual) 16.0 Monocytes % Monocytes % (Manual) 5 Eosinophils % Eosinophils % (Manual) 2.0 Basophils % Platelet Estimate Adequate PT with INR INR PTT (Actin FS) Sodium 138 Potassium 3.9 Chloride 105 Carbon Dioxide 23 Anion Gap 10 BUN 22 H Creatinine 1.1 Creat Clearance w eGFR > 60 Random Glucose 168 H Lactic Acid 1.9 Calcium 9.2 Phosphorus Magnesium Total Bilirubin 2.4 H Direct Bilirubin AST 178 H ALT 92 H Alkaline Phosphatase 340 H Creatine Kinase Troponin I Total Protein 6.4 Albumin 3.4 L Lipase 142 Urine Color Urine Appearance Urine pH Ur Specific [place] Urine Protein Urine Glucose (UA) Urine Ketones Urine Blood Urine Nitrite Urine Bilirubin Urine Urobilinogen Ur Leukocyte Esterase Urine RBC Urine WBC Blood Type Antibody Screen 03/15/18 03/15/18 03/15/18 11:42 11:42 14:51 WBC RBC Hgb Hct MCV MCH MCHC RDW Plt Count MPV Absolute Neuts (auto) Neutrophils % Neutrophils % (Manual) Lymphocytes % Lymphocytes % (Manual) Monocytes % Monocytes % (Manual) Eosinophils % Eosinophils % (Manual) Basophils % Platelet Estimate PT with INR INR PTT (Actin FS) Sodium Potassium Chloride Carbon Dioxide Anion Gap BUN Creatinine Creat Clearance w eGFR Random Glucose Lactic Acid Calcium Phosphorus Magnesium Total Bilirubin Direct Bilirubin AST ALT Alkaline Phosphatase Creatine Kinase 45 Troponin I 0.03 Total Protein Albumin Lipase Urine Color Trish Urine Appearance Clear Urine pH 6.0 Ur Specific [place] 1.010 Urine Protein Negative Urine Glucose (UA) Negative Urine Ketones Negative Urine Blood Negative Urine Nitrite Negative Urine Bilirubin Negative Urine Urobilinogen 1.0 Ur Leukocyte Esterase Trace H Urine RBC No Result Required. Urine WBC 0-2 Blood Type Antibody Screen 03/16/18 03/16/18 03/16/18 07:00 07:05 07:35 WBC 9.0 RBC 3.82 L Hgb 11.4 L Hct 34.7 L MCV 90.9 MCH 30.0 MCHC 33.0 RDW 12.9 Plt Count 242 MPV 8.2 Absolute Neuts (auto) 4.6 Neutrophils % 51.5 Neutrophils % (Manual) Lymphocytes % 38.4 Lymphocytes % (Manual) Monocytes % 7.5 Monocytes % (Manual) Eosinophils % 2.3 Eosinophils % (Manual) Basophils % 0.3 Platelet Estimate PT with INR INR PTT (Actin FS) Sodium Potassium Chloride Carbon Dioxide Anion Gap BUN Creatinine Creat Clearance w eGFR Random Glucose Lactic Acid Calcium Phosphorus Magnesium Total Bilirubin Direct Bilirubin AST ALT Alkaline Phosphatase Creatine Kinase Troponin I Total Protein Albumin Lipase Urine Color Urine Appearance Urine pH Ur Specific [place] Urine Protein Urine Glucose (UA) Urine Ketones Urine Blood Urine Nitrite Urine Bilirubin Urine Urobilinogen Ur Leukocyte Esterase Urine RBC Urine WBC Blood Type O POSITIVE O POSITIVE Antibody Screen Negative 03/16/18 03/16/18 03/16/18 07:35 07:35 07:35 WBC RBC Hgb Hct MCV MCH MCHC RDW Plt Count MPV Absolute Neuts (auto) Neutrophils % Neutrophils % (Manual) Lymphocytes % Lymphocytes % (Manual) Monocytes % Monocytes % (Manual) Eosinophils % Eosinophils % (Manual) Basophils % Platelet Estimate PT with INR 14.1 H INR 1.27 H PTT (Actin FS) Sodium 140 Potassium 4.1 Chloride 111 H Carbon Dioxide 24 Anion Gap 5 L BUN 11 Creatinine 0.8 Creat Clearance w eGFR > 60 Random Glucose 106 D Lactic Acid Calcium 8.3 L Phosphorus 3.1 Magnesium 2.1 Total Bilirubin 2.3 H Direct Bilirubin 1.0 H AST 209 H ALT 234 H D Alkaline Phosphatase 311 H D Creatine Kinase Troponin I Total Protein 5.3 L Albumin 2.6 L Lipase Urine Color Urine Appearance Urine pH Ur Specific [place] Urine Protein Urine Glucose (UA) Urine Ketones Urine Blood Urine Nitrite Urine Bilirubin Urine Urobilinogen Ur Leukocyte Esterase Urine RBC Urine WBC Blood Type Antibody Screen 03/16/18 03/16/18 07:35 07:35 WBC RBC Hgb Hct MCV MCH MCHC RDW Plt Count MPV Absolute Neuts (auto) Neutrophils % Neutrophils % (Manual) Lymphocytes % Lymphocytes % (Manual) Monocytes % Monocytes % (Manual) Eosinophils % Eosinophils % (Manual) Basophils % Platelet Estimate PT with INR INR PTT (Actin FS) 25.2 Sodium Potassium Chloride Carbon Dioxide Anion Gap BUN Creatinine Creat Clearance w eGFR Random Glucose Lactic Acid Calcium Phosphorus Magnesium Total Bilirubin Direct Bilirubin AST ALT Alkaline Phosphatase Creatine Kinase Troponin I Total Protein Albumin Lipase 166 Urine Color Urine Appearance Urine pH Ur Specific [place] Urine Protein Urine Glucose (UA) Urine Ketones Urine Blood Urine Nitrite Urine Bilirubin Urine Urobilinogen Ur Leukocyte Esterase Urine RBC Urine WBC Blood Type Antibody Screen HOSPITAL COURSE: Date of Admission:03/15/18 Date of Discharge: 03/16/18 Pre hospital course 67 year-old male with no reported PMH presented to the ED after acute onset of RUQ abdominal pain. The pain started this morning and continued until patient arrived in ED. Pain lasted 40 minutes, resolved spontaneously, and has not recurred. Patient has had episodes of abdominal pain, not as severe, over the past 3-4 weeks. There has been no associated nausea or vomiting. Patient does not relate the pain to food intake or lack thereof. Patient denies fever, sweats , chills. Had two episodes of diarrhea three days ago. Patient has not seen a health care provider in 15-20 years. ER course was notable for (1) WBC 14.2k (2) Total bili 2.4, AST/ALT/Alk Phos 178/92/340, lipase 142 Subsequent hospital course by problem list Abdominal pain Cholelithiasis Hyperbilirubinemia Elevated transaminases --03/15 US abdomen: thick-walled gallbladder with multiple calculi --03/15 MRCP: (1) distended gallbladder with 2.7cm stone within gallbladder neck, possible early necrosis of the wall of the fundus, no choledocholilithiasis; (2) multiple enlarged lymph nodes within the gastrohepatic ligament, peripancreatic region, as well as retroperitoneum, possible neoplastic process; (3) questionable thickening of the stomach --has been afebrile, WBC 14.2k on admission, trended to wnl --was started on ceftriaxone, metronidazole, switched on 03/16 to Zosyn --cardiology consult was requested for pre-op evaluation; Echo done: LV normal, EF 60-65%; RV normal; trace TR Patient accepted by Dr. Grace Perez at [facility] at 5:17pm. Transfer Center will notify when bed availale. Please keep Dr. Agnes Mcintosh, former [employer] architect at [facility], advised of patient's progress (friend of patient). Work: ; . Minutes to complete discharge: 35 Discharge Summary Reason For Visit: CHOLECYSTITIS Current Active Problems Cholecystitis (Acute) Condition: Fair - Instructions Disposition: TRANSFER ACUTE CARE/OTHER HOSP - Home Medications Comprehensive Discharge Medication List: Ambulatory Orders Omeprazole 1 cap PO PRN 03/15/18 Pepto-Bismol - 1 tsp PO PRN PRN 03/15/18 This patient is new to me today: No Emergency Visit: Yes ED Registration Date: 03/15/18 Care time: The patient presented to the Emergency Department on the above date and was hospitalized for further evaluation of their emergent condition. Critical Care patient: No - Discharge Referral Referred to [facility] No
--- NOTE | 2018-03-16 16:06 | CON.ID ---
Consult Consult Specialty:: infectious diseases Referred by:: Peg Reason for Consultation:: Leukocytosis - Alcohol/Substance Use Hx Alcohol Use: Yes (RARE) - Smoking History Smoking history: Current every day smoker Have you smoked in the past 12 months: Yes Aproximately how many cigarettes per day: 10 Home Medications - Allergies Allergies/Adverse Reactions: Allergies Allergy/AdvReac Type Severity Reaction Status Date / Time No Known Allergies Allergy Verified 03/15/18 17:06 - Home Medications Home Medications: Ambulatory Orders Omeprazole 1 cap PO PRN 03/15/18 Pepto-Bismol - 1 tsp PO PRN PRN 03/15/18 Physical Exam Vital Signs: Vital Signs Temperature 98.7 F 03/16/18 14:00 Pulse Rate 58 L 03/16/18 14:00 Respiratory Rate 17 03/16/18 14:00 Blood Pressure 142/71 03/16/18 14:00 O2 Sat by Pulse Oximetry (%) 96 03/16/18 14:00 Labs: CBC, BMP 03/16/18 07:35 03/16/18 07:35
[2018-03-16] MEDS ORDERED: DEXTROSE 5%-WATER - 50 ML IVPB ONE (18:24)
[2018-03-16] MEDS ORDERED: PIPERACILLIN/TAZOBACTAM 3.375 GM VIAL IVPB ONE (18:24)
[2018-03-16] MEDS: DEXTROSE 5%-0.45% SALINE 1,000 ML IV SCH (18:27)
== END 2018-03-16 20:10 | disposition short-term general hospital (02) | DRG 446 ==
LOC: FER 10:58 → FM/S 14:25
PROVIDERS: ADMIT Internal Medicine; ATTEND Nurse Practitioner Acute Care
DX: K80.01 Calculus of gallbladder with acute cholecystitis with obstruction (principal); F17.210 Nicotine dependence, cigarettes, uncomplicated; K59.00 Constipation, unspecified
CPT/HCPCS: 36415; 71046-TC-FY; 74182-TC; 76700-TC; 80048; 80053; 80076; 81003; 81015; 82550; 83605; 83690; 83735; 84100; 84484; 85025; 85610; 85730; 86850; 86900; 86901; 87040; 87086; 93005; 93306-TC; 99283-25; C1887

== ENCOUNTER 2021-11-22 14:20 | Inpatient (IN) | payer MEDICARE, BC ==
[2021-11-22] MEDS ORDERED: methylPREDNISolone NA SUCC 125 MG/2 ML VIAL IVPUSH ONE (14:32)
[2021-11-22] MEDS ORDERED: VANCOMYCIN 1 GM in D5W (PRE-DOCKED) 1,000 MG/250 ML IVPB ONE (14:40)
[2021-11-22] MEDS ORDERED: CEFEPIME HCL/D5W 1 GM/50 ML BAG IVPB ONE (14:40)
[2021-11-22] MEDS: ALBUTEROL SO4 2.5/IPRATROPIUM 0.5 INH SOL 3 ML VIAL.NEB. NEB SCH ×5 (15:00→23:33)
[2021-11-22] MEDS ORDERED: ALBUTEROL SO4 2.5/IPRATROPIUM 0.5 INH SOL 3 ML VIAL.NEB. NEB ONE ×3 (15:06→23:55)
[2021-11-22] MEDS ORDERED: methylPREDNISolone NA SUCC 125 MG/2 ML VIAL ONE (15:06)
[2021-11-22] MEDS ORDERED: VANCOMYCIN 1,000 MG VIAL (RESTRICTED TO ID ONLY) ONE (15:07)
[2021-11-22 15:54] LABS: ALBUMIN 2.5 g/dl (3.4-5.0); BILIRUBIN,TOTAL 1.5 mg/dl (0.2-1); CALCIUM 8.4 mg/dl (8.5-10)
[2021-11-22 15:55] LABS: HEMATOCRIT 24.4 % (35.4-49); HEMOGLOBIN 8.3 G/dL (11.7-16.9); MCH 33.3 pg (25.7-33.7); MEAN CELL VOLUME 97.8 fl (80-96); MEAN PLT VOLUME 10.2 fl (7.5-11.1); PLATELET COUNT 69.7 10^3/uL (134-434); RBC 2.49 10^6/uL (4.00-5.60); RDW 15.2 % (11.9-15.9); TOT PROT 5.1 g/dl (6.4-8.2)
[2021-11-22 16:09] LABS: INR 1.46 (0.83-1.09); PROTHROMBIN TIME (PATIENT) 16.8 SEC (9.7-13.0)
[2021-11-22 16:11] LABS: ACTIVATED PTT 26.4 SECONDS (25.2-36.5)
[2021-11-22] MEDS ORDERED: CLOPIDOGREL BISULFATE 300 MG TABLET PO ONE (16:12)
[2021-11-22] MEDS ORDERED: ASPIRIN 81 MG CHEWABLE TABLETS PO ONE (16:12)
[2021-11-22] MEDS ORDERED: HEPARIN NA (PORCINE) 5,000 UNITS/ML 1ML VIAL IVPUSH PRN ×2 (16:13)
[2021-11-22] MEDS ORDERED: HEPARIN SOD,PORK IN 0.45% NACL 25,000 UNITS/500 ML INFUS.BAG IVPB SCH (16:15)
[2021-11-22 16:41] LABS: VENOUS BASE EXCESS -1.8 mmol/L (-2-2); VENOUS O2 SATURATION 68.2 % (70-80); VENOUS PCO2 31.6 mmHg (38-52); VENOUS PH 7.457 (7.310-7.410)
[2021-11-22 17:02] LABS: N-TERMINAL BNP 1595.2 pg/ml (5-125)
[2021-11-22 17:10] LABS: LACTIC ACID 2.3 mmol/L (0.4-2.0)
[2021-11-22 17:46] LABS: OVALOCYTE 1+; TEAR DROP CELLS 1+
[2021-11-22] MEDS ORDERED: PIPERACILLIN/TAZOB 3.375 GM 3.375 GM in DEXTROSE 5%-WATER - 50 ML IVPB SCH (19:15)
[2021-11-22] MEDS ORDERED: CHLORHEXIDINE GLUCONATE 4% CLEANSER FOR DECOLONIZATION TP SCH (22:00)
[2021-11-22] MEDS ORDERED: MUPIROCIN 2% TOPICAL OINTMENT FOR DECOLONIZATION NS SCH (22:00)
[2021-11-22] MEDS ORDERED: PIPERACILLIN/TAZOBACTAM 3.375 GM VIAL IVPB ONE (23:18)
[2021-11-22] MEDS: PIPERACILLIN/TAZOB 3.375 GM 3.375 GM in DEXTROSE 5%-WATER - 50 ML IVPB SCH (23:29)
[2021-11-23] MEDS: PIPERACILLIN/TAZOB 3.375 GM 3.375 GM in DEXTROSE 5%-WATER - 50 ML IVPB SCH ×3 (03:17→17:15)
[2021-11-23 07:38] LABS: HEMATOCRIT 23.2 % (35.4-49); HEMOGLOBIN 7.7 GM/dL (11.7-16.9); MCH 32.2 pg (25.7-33.7); MCHC 33.2 g/dl (32.0-35.9); MEAN CELL VOLUME 97.1 fl (80-96); MEAN PLT VOLUME 9.2 fl (7.5-11.1); PLATELET COUNT 47 10^3/uL (134-434); RBC 2.39 M/mm3 (4.00-5.60); RDW 16.1 % (11.9-15.9); WHITE BLOOD COUNT 3.6 K/mm3 (4.0-10.0)
[2021-11-23 08:28] LABS: ALBUMIN 2.5 g/dl (3.4-5.0); CALCIUM 8.5 mg/dL (8.5-10.1)
[2021-11-23] MEDS: ALBUTEROL SO4 2.5/IPRATROPIUM 0.5 INH SOL 3 ML VIAL.NEB. NEB SCH ×4 (08:30→20:30)
[2021-11-23 08:31] LABS: CREATININE 0.9 mg/dL (0.55-1.3)
[2021-11-23 08:33] LABS: BILIRUBIN,TOTAL 1.3 mg/dL (0.2-1); TOT PROT 5.1 g/dl (6.4-8.2)
[2021-11-23 09:11] LABS: BILIRUBIN,DIRECT 0.5 mg/dL (0.0-0.2)
[2021-11-23 11:46] LABS: ANISOCYTOSIS 2+; MACROCYTOSIS 0; OVALOCYTE 2+; TEAR DROP CELLS 1+
[2021-11-23] MEDS ORDERED: PIPERACILLIN/TAZOBACTAM 3.375 GM VIAL IVPB ONE (12:01)
[2021-11-23] MEDS: PANTOPRAZOLE SODIUM 40 MG VIAL IVPUSH SCH (12:06)
[2021-11-23] MEDS ORDERED: AZITHROMYCIN IVPB 500 MG/250 ML BAG IVPB ONE (12:45)
[2021-11-23] MEDS: methylPREDNISolone NA SUCC 40 MG/1 ML VIAL IVPUSH SCH ×2 (16:19→20:55)
[2021-11-23 16:22] LABS: EPI CELLS 6 /uL (0-25.1); HYALINE CASTS 1 /uL (0-3.1); PH,URINE 5.5 (5.0-8.0); URINE APPEARANCE CLOUDY; URINE BACTERIA 10 /uL (0-1359); URINE BILIRUBIN NEGATIVE (NEGATIVE); URINE COLOR YELLOW; URINE GLUCOSE (UA) NEGATIVE (NEGATIVE); URINE KETONE NEGATIVE (NEGATIVE); URINE LEUK ESTERASE NEGATIVE (NEGATIVE); URINE NITRITE NEGATIVE (NEGATIVE); URINE PROTEIN TRACE (NEGATIVE); URINE RBC 66 /uL (0-23.9); URINE UROBILINOGEN 0.2 mg/dL (0.2-1.0); URINE WBC 12 /uL (0-25.8)
[2021-11-23 16:41] LABS: YEAST NONE SEEN (NEGATIVE)
[2021-11-23] MEDS: MUPIROCIN 2% TOPICAL OINTMENT FOR DECOLONIZATION NS SCH ×2 (17:15→21:46)
[2021-11-23] MEDS: CHLORHEXIDINE GLUCONATE 4% CLEANSER FOR DECOLONIZATION TP SCH (21:46)
[2021-11-23 21:57] LABS: CALCIUM 8.6 mg/dL (8.5-10.1)
[2021-11-23 21:58] LABS: ALBUMIN 2.3 g/dl (3.4-5.0); BLOOD UREA NITROGEN 23.5 mg/dL (7-18); MAGNESIUM 2.8 mg/dL (1.8-2.4)
[2021-11-23 22:01] LABS: CREATININE 0.9 mg/dL (0.55-1.3); PHOSPHOROUS 2.6 mg/dL (2.5-4.9)
[2021-11-23 22:03] LABS: TOT PROT 4.8 g/dl (6.4-8.2)
[2021-11-24] MEDS: PIPERACILLIN/TAZOB 3.375 GM 3.375 GM in DEXTROSE 5%-WATER - 50 ML IVPB SCH ×3 (01:30→17:24)
[2021-11-24] MEDS: methylPREDNISolone NA SUCC 40 MG/1 ML VIAL IVPUSH SCH ×3 (03:50→20:15)
[2021-11-24] MEDS: ALBUTEROL SO4 2.5/IPRATROPIUM 0.5 INH SOL 3 ML VIAL.NEB. NEB SCH ×4 (07:45→20:15)
[2021-11-24 08:57] LABS: HEMATOCRIT 22.7 % (35.4-49); HEMOGLOBIN 7.5 GM/dL (11.7-16.9); MCH 32.1 pg (25.7-33.7); MEAN CELL VOLUME 97.3 fl (80-96); PLATELET COUNT 41 10^3/uL (134-434); RBC 2.33 M/mm3 (4.00-5.60); RDW 15.7 % (11.9-15.9); WHITE BLOOD COUNT 3.8 K/mm3 (4.0-10.0)
[2021-11-24] MEDS: PANTOPRAZOLE SODIUM 40 MG VIAL IVPUSH SCH (09:37)
[2021-11-24] MEDS: MUPIROCIN 2% TOPICAL OINTMENT FOR DECOLONIZATION NS SCH ×2 (09:37→21:35)
[2021-11-24] MEDS ORDERED: AZITHROMYCIN IVPB 250 MG in DEXTROSE 5%-WATER - 250 ML IVPB SCH (10:00)
[2021-11-24 17:19] LABS: BLOOD UREA NITROGEN 28.2 mg/dL (7-18); CALCIUM 8.8 mg/dL (8.5-10.1); MAGNESIUM 2.7 mg/dL (1.8-2.4)
[2021-11-24 17:23] LABS: CREATININE 0.8 mg/dL (0.55-1.3); PHOSPHOROUS 3.6 mg/dL (2.5-4.9)
[2021-11-24 17:24] LABS: BILIRUBIN,TOTAL 1.2 mg/dL (0.2-1); TOT PROT 4.9 g/dl (6.4-8.2)
[2021-11-24 17:32] LABS: ALBUMIN 2.4 g/dl (3.4-5.0)
[2021-11-24] MEDS: CHLORHEXIDINE GLUCONATE 4% CLEANSER FOR DECOLONIZATION TP SCH (21:35)
[2021-11-25] MEDS: PIPERACILLIN/TAZOB 3.375 GM 3.375 GM in DEXTROSE 5%-WATER - 50 ML IVPB SCH ×3 (01:33→18:40)
[2021-11-25] MEDS: methylPREDNISolone NA SUCC 40 MG/1 ML VIAL IVPUSH SCH ×3 (04:30→18:40)
[2021-11-25] MEDS: ALBUTEROL SO4 2.5/IPRATROPIUM 0.5 INH SOL 3 ML VIAL.NEB. NEB SCH ×5 (07:13→20:43)
[2021-11-25 07:16] LABS: ALBUMIN 2.2 g/dl (3.4-5.0); BLOOD UREA NITROGEN 30.4 mg/dL (7-18); CALCIUM 8.4 mg/dL (8.5-10.1); MAGNESIUM 2.8 mg/dL (1.8-2.4)
[2021-11-25 07:19] LABS: CREATININE 0.8 mg/dL (0.55-1.3); PHOSPHOROUS 3.8 mg/dL (2.5-4.9)
[2021-11-25 07:20] LABS: BILIRUBIN,TOTAL 0.9 mg/dL (0.2-1); TOT PROT 4.6 g/dl (6.4-8.2)
[2021-11-25 08:06] LABS: HEMATOCRIT 22.2 % (35.4-49); HEMOGLOBIN 7.3 GM/dL (11.7-16.9); MCH 32.3 pg (25.7-33.7); MCHC 32.9 g/dl (32.0-35.9); MEAN CELL VOLUME 98.2 fl (80-96); MEAN PLT VOLUME 9.6 fl (7.5-11.1); PLATELET COUNT 43 10^3/uL (134-434); RBC 2.26 M/mm3 (4.00-5.60); RDW 15.9 % (11.9-15.9); WHITE BLOOD COUNT 3.1 K/mm3 (4.0-10.0)
[2021-11-25] MEDS: MUPIROCIN 2% TOPICAL OINTMENT FOR DECOLONIZATION NS SCH ×2 (10:11→21:22)
[2021-11-25] MEDS: PANTOPRAZOLE SODIUM 40 MG VIAL IVPUSH SCH (10:11)
[2021-11-25] MEDS ORDERED: ALBUTEROL SO4 2.5/IPRATROPIUM 0.5 INH SOL 3 ML VIAL.NEB. NEB SCH (12:00)
[2021-11-25] MEDS: CHLORHEXIDINE GLUCONATE 4% CLEANSER FOR DECOLONIZATION TP SCH (21:23)
[2021-11-26] MEDS: methylPREDNISolone NA SUCC 40 MG/1 ML VIAL IVPUSH SCH ×3 (01:20→18:13)
[2021-11-26] MEDS: PIPERACILLIN/TAZOB 3.375 GM 3.375 GM in DEXTROSE 5%-WATER - 50 ML IVPB SCH ×3 (01:34→18:13)
[2021-11-26] MEDS: ALBUTEROL SO4 2.5/IPRATROPIUM 0.5 INH SOL 3 ML VIAL.NEB. NEB SCH ×4 (07:50→20:05)
[2021-11-26 08:33] LABS: HEMATOCRIT 22.7 % (35.4-49); HEMOGLOBIN 7.5 GM/dL (11.7-16.9); MCH 32.6 pg (25.7-33.7); MCHC 33.2 g/dl (32.0-35.9); MEAN CELL VOLUME 98.3 fl (80-96); MEAN PLT VOLUME 9.4 fl (7.5-11.1); PLATELET COUNT 39 10^3/uL (134-434); RBC 2.31 M/mm3 (4.00-5.60); WHITE BLOOD COUNT 2.6 K/mm3 (4.0-10.0)
[2021-11-26] MEDS: MUPIROCIN 2% TOPICAL OINTMENT FOR DECOLONIZATION NS SCH ×2 (10:33→22:15)
[2021-11-26] MEDS: PANTOPRAZOLE SODIUM 40 MG VIAL IVPUSH SCH (10:34)
[2021-11-26] MEDS: CHLORHEXIDINE GLUCONATE 4% CLEANSER FOR DECOLONIZATION TP SCH (22:15)
[2021-11-27] MEDS: PIPERACILLIN/TAZOB 3.375 GM 3.375 GM in DEXTROSE 5%-WATER - 50 ML IVPB SCH ×2 (02:03→09:27)
[2021-11-27] MEDS: methylPREDNISolone NA SUCC 40 MG/1 ML VIAL IVPUSH SCH ×3 (02:03→17:40)
[2021-11-27] MEDS: ALBUTEROL SO4 2.5/IPRATROPIUM 0.5 INH SOL 3 ML VIAL.NEB. NEB SCH ×4 (08:04→20:48)
[2021-11-27] MEDS: PANTOPRAZOLE SODIUM 40 MG VIAL IVPUSH SCH (09:26)
[2021-11-27 09:30] LABS: HEMOGLOBIN 7.9 GM/dL (11.7-16.9); MCH 32.3 pg (25.7-33.7); MEAN CELL VOLUME 97.8 fl (80-96); MEAN PLT VOLUME 8.9 fl (7.5-11.1); PLATELET COUNT 41 10^3/uL (134-434); RBC 2.46 M/mm3 (4.00-5.60); RDW 15.6 % (11.9-15.9); WHITE BLOOD COUNT 2.9 K/mm3 (4.0-10.0)
[2021-11-27 09:58] LABS: ANISOCYTOSIS 1+; MACROCYTOSIS 0; PLATELET ESTIMATE DECREASED
[2021-11-27] MEDS ORDERED: ENOXAPARIN NA (PORCINE) 40 MG/0.4 ML DISP.SYRIN SQ SCH (10:00)
[2021-11-27 19:18] LABS: ALBUMIN 2.4 g/dl (3.4-5.0); BLOOD UREA NITROGEN 28.1 mg/dL (7-18); CALCIUM 8.5 mg/dL (8.5-10.1)
[2021-11-27 19:19] LABS: MAGNESIUM 2.5 mg/dL (1.8-2.4)
[2021-11-27 19:21] LABS: CREATININE 0.9 mg/dL (0.55-1.3); PHOSPHOROUS 3.8 mg/dL (2.5-4.9)
[2021-11-27 19:23] LABS: BILIRUBIN,TOTAL 0.9 mg/dL (0.2-1); TOT PROT 4.7 g/dl (6.4-8.2)
[2021-11-28] MEDS: methylPREDNISolone NA SUCC 40 MG/1 ML VIAL IVPUSH SCH ×3 (01:58→17:39)
[2021-11-28 08:13] LABS: HEMATOCRIT 24.5 % (35.4-49); HEMOGLOBIN 8.1 GM/dL (11.7-16.9); MCH 32.5 pg (25.7-33.7); MEAN CELL VOLUME 98.5 fl (80-96); MEAN PLT VOLUME 10.8 fl (7.5-11.1); PLATELET COUNT 46 10^3/uL (134-434); RBC 2.49 M/mm3 (4.00-5.60); RDW 15.5 % (11.9-15.9); WHITE BLOOD COUNT 2.6 K/mm3 (4.0-10.0)
[2021-11-28] MEDS: ALBUTEROL SO4 2.5/IPRATROPIUM 0.5 INH SOL 3 ML VIAL.NEB. NEB SCH ×5 (08:40→20:53)
[2021-11-28] MEDS: PANTOPRAZOLE SODIUM 40 MG VIAL IVPUSH SCH (09:13)
[2021-11-28 12:54] LABS: CALCIUM 8.7 mg/dL (8.5-10.1)
[2021-11-28 12:55] LABS: ALBUMIN 2.4 g/dl (3.4-5.0); MAGNESIUM 2.4 mg/dL (1.8-2.4)
[2021-11-28 12:58] LABS: CREATININE 0.9 mg/dL (0.55-1.3); PHOSPHOROUS 3.1 mg/dL (2.5-4.9)
[2021-11-28 12:59] LABS: BILIRUBIN,TOTAL 0.9 mg/dL (0.2-1); TOT PROT 4.7 g/dl (6.4-8.2)
[2021-11-28] MEDS: PIPERACILLIN/TAZOB 3.375 GM 3.375 GM in DEXTROSE 5%-WATER - 50 ML IVPB SCH (20:22)
[2021-11-29] MEDS: methylPREDNISolone NA SUCC 40 MG/1 ML VIAL IVPUSH SCH ×3 (01:05→17:07)
[2021-11-29] MEDS: PIPERACILLIN/TAZOB 3.375 GM 3.375 GM in DEXTROSE 5%-WATER - 50 ML IVPB SCH ×2 (01:37→09:03)
[2021-11-29] MEDS: ALBUTEROL SO4 2.5/IPRATROPIUM 0.5 INH SOL 3 ML VIAL.NEB. NEB SCH ×4 (07:57→20:09)
[2021-11-29 08:31] LABS: HEMATOCRIT 24.6 % (35.4-49); HEMOGLOBIN 8.1 GM/dL (11.7-16.9); MCH 32.5 pg (25.7-33.7); MCHC 33.1 g/dl (32.0-35.9); MEAN CELL VOLUME 97.9 fl (80-96); RBC 2.51 M/mm3 (4.00-5.60); RDW 15.9 % (11.9-15.9); WHITE BLOOD COUNT 2.1 K/mm3 (4.0-10.0)
[2021-11-29 08:52] LABS: PLATELET COUNT 34 10^3/uL (134-434)
[2021-11-29 08:58] LABS: CALCIUM 8.6 mg/dL (8.5-10.1)
[2021-11-29 08:59] LABS: ALBUMIN 2.5 g/dl (3.4-5.0); BLOOD UREA NITROGEN 25.7 mg/dL (7-18); MAGNESIUM 2.6 mg/dL (1.8-2.4)
[2021-11-29 09:02] LABS: CREATININE 0.8 mg/dL (0.55-1.3); PHOSPHOROUS 4.5 mg/dL (2.5-4.9)
[2021-11-29] MEDS: PANTOPRAZOLE SODIUM 40 MG VIAL IVPUSH SCH (09:03)
[2021-11-29 09:04] LABS: TOT PROT 4.8 g/dl (6.4-8.2)
[2021-11-29 10:14] LABS: ANISOCYTOSIS 0; MACROCYTOSIS 1+
[2021-11-29 11:17] LABS: HIV INTERPRETATION NEGATIVE (NEGATIVE)
[2021-11-29] MEDS: AMINO ACIDS/PROTEIN HYDROLYS 30 ML LIQUID.PKT PO SCH (15:36)
[2021-11-29] MEDS: MULTIVITAMINS THER W-MINERALS COMBO TABLET (FP) PO SCH (15:36)
[2021-11-29] MEDS: CEFEPIME 2 GM in DEXTROSE 5%-WATER 100 ML IVPB SCH (17:07)
[2021-11-30] MEDS: CEFEPIME 2 GM in DEXTROSE 5%-WATER 100 ML IVPB SCH ×3 (01:22→18:45)
[2021-11-30] MEDS: methylPREDNISolone NA SUCC 40 MG/1 ML VIAL IVPUSH SCH ×3 (01:23→18:46)
[2021-11-30] MEDS: ALBUTEROL SO4 2.5/IPRATROPIUM 0.5 INH SOL 3 ML VIAL.NEB. NEB SCH ×4 (08:15→20:35)
[2021-11-30 09:16] LABS: HEMATOCRIT 26.2 % (35.4-49); HEMOGLOBIN 8.6 GM/dL (11.7-16.9); MCH 32.3 pg (25.7-33.7); MEAN CELL VOLUME 97.9 fl (80-96); MEAN PLT VOLUME 10.3 fl (7.5-11.1); PLATELET COUNT 37 10^3/uL (134-434); RBC 2.67 M/mm3 (4.00-5.60); RDW 15.8 % (11.9-15.9); WHITE BLOOD COUNT 3.2 K/mm3 (4.0-10.0)
[2021-11-30 09:42] LABS: ALBUMIN 2.7 g/dl (3.4-5.0)
[2021-11-30 09:43] LABS: BLOOD UREA NITROGEN 27.9 mg/dL (7-18)
[2021-11-30 09:44] LABS: MAGNESIUM 2.5 mg/dL (1.8-2.4)
[2021-11-30 09:46] LABS: CREATININE 0.7 mg/dL (0.55-1.3); PHOSPHOROUS 3.9 mg/dL (2.5-4.9)
[2021-11-30 09:47] LABS: BILIRUBIN,TOTAL 1.2 mg/dL (0.2-1); CALCIUM 8.5 mg/dL (8.5-10.1); TOT PROT 5.1 g/dl (6.4-8.2)
[2021-11-30] MEDS: AMINO ACIDS/PROTEIN HYDROLYS 30 ML LIQUID.PKT PO SCH (11:17)
[2021-11-30] MEDS: PANTOPRAZOLE SODIUM 40 MG VIAL IVPUSH SCH (11:17)
[2021-11-30] MEDS: MULTIVITAMINS THER W-MINERALS COMBO TABLET (FP) PO SCH (11:18)
[2021-11-30 14:16] LABS: ANISOCYTOSIS 2+; MACROCYTOSIS 0; OVALOCYTE 2+; TEAR DROP CELLS 1+
[2021-12-01] MEDS: methylPREDNISolone NA SUCC 40 MG/1 ML VIAL IVPUSH SCH ×3 (02:11→17:47)
[2021-12-01] MEDS: CEFEPIME 2 GM in DEXTROSE 5%-WATER 100 ML IVPB SCH ×3 (02:12→17:33)
[2021-12-01 07:51] LABS: HEMATOCRIT 25.7 % (35.4-49); HEMOGLOBIN 8.4 GM/dL (11.7-16.9); MCHC 32.6 g/dl (32.0-35.9); MEAN CELL VOLUME 98.3 fl (80-96); MEAN PLT VOLUME 11.4 fl (7.5-11.1); PLATELET COUNT 38 10^3/uL (134-434); RBC 2.62 M/mm3 (4.00-5.60); RDW 16.4 % (11.9-15.9); WHITE BLOOD COUNT 2.9 K/mm3 (4.0-10.0)
[2021-12-01] MEDS: ALBUTEROL SO4 2.5/IPRATROPIUM 0.5 INH SOL 3 ML VIAL.NEB. NEB SCH ×4 (08:05→20:21)
[2021-12-01 08:11] LABS: CALCIUM 8.7 mg/dL (8.5-10.1)
[2021-12-01 08:12] LABS: ALBUMIN 2.5 g/dl (3.4-5.0); BLOOD UREA NITROGEN 26.9 mg/dL (7-18); MAGNESIUM 2.6 mg/dL (1.8-2.4)
[2021-12-01 08:15] LABS: CREATININE 0.8 mg/dL (0.55-1.3); PHOSPHOROUS 3.8 mg/dL (2.5-4.9)
[2021-12-01 09:30] LABS: ANISOCYTOSIS 0; MACROCYTOSIS 1+
[2021-12-01] MEDS: PANTOPRAZOLE SODIUM 40 MG VIAL IVPUSH SCH (09:32)
[2021-12-01] MEDS: AMINO ACIDS/PROTEIN HYDROLYS 30 ML LIQUID.PKT PO SCH (09:32)
[2021-12-01 13:55] LABS: BF WBC & OTHER NUCLEATED CELLS 323 /mm3
[2021-12-01 14:52] LABS: BODY FLUID MACROPHAGES 64 %
[2021-12-01 14:53] LABS: BODY FLUID MESOTHELIAL 13 %
[2021-12-01] MEDS: MULTIVITAMINS THER W-MINERALS COMBO TABLET (FP) PO SCH (15:45)
[2021-12-01] MEDS: SODIUM CHLORIDE IVPB SCH ×3 (17:32→21:00)
[2021-12-01] MEDS: VORICONAZOLE IVPB SCH ×3 (17:32→21:00)
[2021-12-02] MEDS: CEFEPIME 2 GM in DEXTROSE 5%-WATER 100 ML IVPB SCH ×3 (01:27→17:09)
[2021-12-02] MEDS: methylPREDNISolone NA SUCC 40 MG/1 ML VIAL IVPUSH SCH ×2 (01:27→10:07)
[2021-12-02] MEDS: ALBUTEROL SO4 2.5/IPRATROPIUM 0.5 INH SOL 3 ML VIAL.NEB. NEB SCH ×4 (07:40→20:30)
[2021-12-02 09:01] LABS: HEMATOCRIT 25.9 % (35.4-49); HEMOGLOBIN 8.6 GM/dL (11.7-16.9); MCH 32.9 pg (25.7-33.7); MCHC 33.3 g/dl (32.0-35.9); MEAN CELL VOLUME 98.8 fl (80-96); PLATELET COUNT 72 10^3/uL (134-434); RBC 2.62 M/mm3 (4.00-5.60); RDW 16.5 % (11.9-15.9); WHITE BLOOD COUNT 3.8 K/mm3 (4.0-10.0)
[2021-12-02 09:23] LABS: ALBUMIN 2.7 g/dl (3.4-5.0); BLOOD UREA NITROGEN 29.1 mg/dL (7-18); CALCIUM 8.8 mg/dL (8.5-10.1)
[2021-12-02 09:24] LABS: MAGNESIUM 2.4 mg/dL (1.8-2.4)
[2021-12-02 09:27] LABS: CREATININE 0.7 mg/dL (0.55-1.3); PHOSPHOROUS 3.4 mg/dL (2.5-4.9)
[2021-12-02 09:28] LABS: TOT PROT 5.3 g/dl (6.4-8.2)
[2021-12-02 09:49] LABS: ANISOCYTOSIS 1+; MACROCYTOSIS 1+; OVALOCYTE 1+
[2021-12-02] MEDS: AMINO ACIDS/PROTEIN HYDROLYS 30 ML LIQUID.PKT PO SCH (10:06)
[2021-12-02] MEDS: PANTOPRAZOLE SODIUM 40 MG VIAL IVPUSH SCH (10:07)
[2021-12-02] MEDS: MULTIVITAMINS THER W-MINERALS COMBO TABLET (FP) PO SCH (10:08)
[2021-12-02] MEDS: VORICONAZOLE IVPB SCH ×3 (11:06→21:21)
[2021-12-02] MEDS: SODIUM CHLORIDE IVPB SCH ×3 (11:06→21:21)
[2021-12-03] MEDS: CEFEPIME 2 GM in DEXTROSE 5%-WATER 100 ML IVPB SCH ×3 (01:33→17:14)
[2021-12-03] MEDS ORDERED: ALBUTEROL SO4 2.5/IPRATROPIUM 0.5 INH SOL 3 ML VIAL.NEB. NEB ONE (04:19)
[2021-12-03] MEDS ORDERED: LORazepam 2 MG/ML SDV VIAL IVPUSH ONE (04:59)
[2021-12-03 05:59] LABS: HEMATOCRIT 25.9 % (35.4-49); HEMOGLOBIN 8.5 GM/dL (11.7-16.9); MCH 32.7 pg (25.7-33.7); MCHC 32.8 g/dl (32.0-35.9); MEAN CELL VOLUME 99.6 fl (80-96); MEAN PLT VOLUME 9.3 fl (7.5-11.1); PLATELET COUNT 55 10^3/uL (134-434); RDW 17.3 % (11.9-15.9); WHITE BLOOD COUNT 3.2 K/mm3 (4.0-10.0)
[2021-12-03 06:14] LABS: ARTERIAL BLD GAS O2 SATURATION 95.8 % (95-98); ARTERIAL BLOOD GAS BASE EXCESS -6.7 mmol/L (-2-2); ARTERIAL BLOOD GAS PO2 90.8 mmHg (80-100); ARTERIAL BLOOD GAS pH 7.267 (7.350-7.450)
[2021-12-03 06:19] LABS: ALLENS TEST POSITIVE
[2021-12-03 06:20] LABS: VENT RATE 14
[2021-12-03 06:24] LABS: CALCIUM 8.4 mg/dL (8.5-10.1); MAGNESIUM 2.4 mg/dL (1.8-2.4)
[2021-12-03 06:25] LABS: ALBUMIN 2.6 g/dl (3.4-5.0)
[2021-12-03 06:27] LABS: PHOSPHOROUS 3.5 mg/dL (2.5-4.9)
[2021-12-03 06:28] LABS: CREATININE 0.9 mg/dL (0.55-1.3)
[2021-12-03 06:29] LABS: BILIRUBIN,TOTAL 0.9 mg/dL (0.2-1)
[2021-12-03 06:41] LABS: LACTIC ACID 4.3 mmol/L (0.4-2.0)
[2021-12-03] MEDS: ALBUTEROL SO4 2.5/IPRATROPIUM 0.5 INH SOL 3 ML VIAL.NEB. NEB SCH (08:12)
[2021-12-03] MEDS ORDERED: RAPID SEQUENCE INTUBATION KIT NR ONE (09:27)
[2021-12-03] MEDS ORDERED: morphine CARPU-JECT 4 MG/1 ML DISP.SYRIN IVPUSH ONE (09:59)
[2021-12-03] MEDS ORDERED: morphine SULFATE 4 MG/ML VIAL ONE (10:00)
[2021-12-03] MEDS ORDERED: methylPREDNISolone NA SUCC 40 MG/1 ML VIAL IVPUSH SCH (10:00)
[2021-12-03] MEDS: AMINO ACIDS/PROTEIN HYDROLYS 30 ML LIQUID.PKT PO SCH (10:11)
[2021-12-03] MEDS ORDERED: DEXMEDETOMIDINE PREMIX 400 MCG/100 ML BAG IVPB SCH ×2 (10:15)
[2021-12-03 10:26] LABS: ANISOCYTOSIS 0; MACROCYTOSIS 1+; OVALOCYTE 1+
[2021-12-03 11:08] LABS: ARTERIAL BLD GAS O2 SATURATION 99.3 % (95-98); ARTERIAL BLOOD GAS BASE EXCESS 0.1 mmol/L (-2-2); ARTERIAL BLOOD GAS PO2 184.1 mmHg (80-100); ARTERIAL BLOOD GAS pH 7.402 (7.350-7.450)
[2021-12-03 11:09] LABS: ALLENS TEST POSITIVE
[2021-12-03] MEDS: PANTOPRAZOLE SODIUM 40 MG VIAL IVPUSH SCH (11:09)
[2021-12-03] MEDS: MULTIVITAMINS THER W-MINERALS COMBO TABLET (FP) PO SCH (11:09)
[2021-12-03 11:10] LABS: VENT MODE S/T
[2021-12-03] MEDS ORDERED: MUPIROCIN 2% TOPICAL OINTMENT FOR DECOLONIZATION NS SCH (12:00)
[2021-12-03] MEDS: VORICONAZOLE IVPB SCH ×2 (14:12→14:24)
[2021-12-03] MEDS: SODIUM CHLORIDE IVPB SCH ×2 (14:12→14:24)
[2021-12-03] MEDS ORDERED: CASPOFUNGIN ACETATE 70 MG in SODIUM CHLORIDE 250 ML IVPB ONE (15:30)
[2021-12-03 16:07] LABS: BODY FLUID ALBUMIN 2.2 g/dL (Not Estab.)
[2021-12-03] MEDS: DEXMEDETOMIDINE PREMIX 400 MCG/100 ML BAG IVPB SCH ×2 (18:21→21:14)
[2021-12-03] MEDS ORDERED: VORICONAZOLE IVPB SCH (22:00)
[2021-12-03] MEDS ORDERED: SODIUM CHLORIDE IVPB SCH (22:00)
[2021-12-03] MEDS ORDERED: CHLORHEXIDINE GLUCONATE 4% CLEANSER FOR DECOLONIZATION TP SCH (22:00)
[2021-12-04] MEDS: CEFEPIME 2 GM in DEXTROSE 5%-WATER 100 ML IVPB SCH ×3 (01:53→17:42)
[2021-12-04 07:39] LABS: CALCIUM 8.4 mg/dL (8.5-10.1)
[2021-12-04 07:40] LABS: ALBUMIN 2.5 g/dl (3.4-5.0); BLOOD UREA NITROGEN 46.1 mg/dL (7-18); MAGNESIUM 2.7 mg/dL (1.8-2.4)
[2021-12-04 07:44] LABS: BILIRUBIN,TOTAL 1.1 mg/dL (0.2-1); TOT PROT 5.2 g/dl (6.4-8.2)
[2021-12-04 08:12] LABS: HEMATOCRIT 27.6 % (35.4-49); HEMOGLOBIN 8.7 GM/dL (11.7-16.9); MCH 32.5 pg (25.7-33.7); MCHC 31.4 g/dl (32.0-35.9); MEAN CELL VOLUME 103.4 fl (80-96); MEAN PLT VOLUME 10.4 fl (7.5-11.1); PLATELET COUNT 38 10^3/uL (134-434); RBC 2.67 M/mm3 (4.00-5.60); RDW 17.5 % (11.9-15.9); WHITE BLOOD COUNT 3.1 K/mm3 (4.0-10.0)
[2021-12-04 09:17] LABS: ANISOCYTOSIS 2+; MACROCYTOSIS 0; OVALOCYTE 2+; TEAR DROP CELLS 1+
[2021-12-04] MEDS: PANTOPRAZOLE SODIUM 40 MG VIAL IVPUSH SCH (09:38)
[2021-12-04] MEDS: AMINO ACIDS/PROTEIN HYDROLYS 30 ML LIQUID.PKT PO SCH (09:39)
[2021-12-04] MEDS: MULTIVITAMINS THER W-MINERALS COMBO TABLET (FP) PO SCH (09:39)
[2021-12-04] MEDS: DEXMEDETOMIDINE PREMIX 400 MCG/100 ML BAG IVPB SCH (13:58)
[2021-12-04] MEDS: CASPOFUNGIN ACETATE 50 MG in SODIUM CHLORIDE 250 ML IVPB SCH (15:07)
[2021-12-05] MEDS: DEXMEDETOMIDINE PREMIX 400 MCG/100 ML BAG IVPB SCH ×3 (01:40→22:30)
[2021-12-05] MEDS: CEFEPIME 2 GM in DEXTROSE 5%-WATER 100 ML IVPB SCH ×3 (01:40→18:07)
[2021-12-05 07:52] LABS: HEMATOCRIT 28.3 % (35.4-49); HEMOGLOBIN 9.2 GM/dL (11.7-16.9); MCHC 32.6 g/dl (32.0-35.9); MEAN CELL VOLUME 101.2 fl (80-96); MEAN PLT VOLUME 9.6 fl (7.5-11.1); PLATELET COUNT 34 10^3/uL (134-434); RDW 17.5 % (11.9-15.9); WHITE BLOOD COUNT 3.6 K/mm3 (4.0-10.0)
[2021-12-05 07:53] LABS: CALCIUM 8.6 mg/dL (8.5-10.1)
[2021-12-05 07:54] LABS: ALBUMIN 2.4 g/dl (3.4-5.0); BLOOD UREA NITROGEN 65.6 mg/dL (7-18)
[2021-12-05 07:57] LABS: CREATININE 1.2 mg/dL (0.55-1.3); PHOSPHOROUS 4.4 mg/dL (2.5-4.9); TOT PROT 5.2 g/dl (6.4-8.2)
[2021-12-05] MEDS: AMINO ACIDS/PROTEIN HYDROLYS 30 ML LIQUID.PKT PO SCH (08:36)
[2021-12-05 10:20] LABS: ANISOCYTOSIS 1+; MACROCYTOSIS 1+
[2021-12-05] MEDS: PANTOPRAZOLE SODIUM 40 MG VIAL IVPUSH SCH (10:41)
[2021-12-05] MEDS: MULTIVITAMINS THER W-MINERALS COMBO TABLET (FP) PO SCH (10:41)
[2021-12-05] MEDS: CASPOFUNGIN ACETATE 50 MG in SODIUM CHLORIDE 250 ML IVPB SCH (15:58)
[2021-12-06] MEDS: CEFEPIME 2 GM in DEXTROSE 5%-WATER 100 ML IVPB SCH ×3 (01:22→18:39)
[2021-12-06] MEDS: DEXMEDETOMIDINE PREMIX 400 MCG/100 ML BAG IVPB SCH ×5 (04:38→23:36)
[2021-12-06 07:12] LABS: HEMATOCRIT 28.5 % (35.4-49); HEMOGLOBIN 9.2 GM/dL (11.7-16.9); MCH 32.5 pg (25.7-33.7); MCHC 32.2 g/dl (32.0-35.9); MEAN PLT VOLUME 10.3 fl (7.5-11.1); RBC 2.82 M/mm3 (4.00-5.60); RDW 17.9 % (11.9-15.9)
[2021-12-06 07:20] LABS: ALBUMIN 2.1 g/dl (3.4-5.0); CALCIUM 8.7 mg/dL (8.5-10.1); MAGNESIUM 3.5 mg/dL (1.8-2.4); PLATELET COUNT 25 10^3/uL (134-434)
[2021-12-06 07:22] LABS: PHOSPHOROUS 5.1 mg/dL (2.5-4.9)
[2021-12-06 07:23] LABS: CREATININE 1.5 mg/dL (0.55-1.3)
[2021-12-06 07:24] LABS: BILIRUBIN,TOTAL 0.9 mg/dL (0.2-1)
[2021-12-06] MEDS: AMINO ACIDS/PROTEIN HYDROLYS 30 ML LIQUID.PKT PO SCH (08:33)
[2021-12-06] MEDS ORDERED: PHENYLEPHRINE HCL 10 MG/1 ML SINGLE DOSE VIAL ONE (08:38)
[2021-12-06] MEDS: PHENYLEPHRINE NS PREMIX 50,000 MCG/500 ML BAG CVP SCH ×2 (08:50→23:37)
[2021-12-06] MEDS ORDERED: DEXMEDETOMIDINE PREMIX 400 MCG/100 ML BAG IVPB ONE (09:57)
[2021-12-06 10:13] LABS: ANISOCYTOSIS 1+; MACROCYTOSIS 1+
[2021-12-06] MEDS: PANTOPRAZOLE SODIUM 40 MG VIAL IVPUSH SCH (10:20)
[2021-12-06] MEDS: MULTIVITAMINS THER W-MINERALS COMBO TABLET (FP) PO SCH (10:31)
[2021-12-06] MEDS ORDERED: VORICONAZOLE IVPB SCH (15:00)
[2021-12-06] MEDS: CASPOFUNGIN ACETATE 50 MG in SODIUM CHLORIDE 250 ML IVPB SCH (16:25)
[2021-12-06] MEDS: VORICONAZOLE IVPB SCH (17:29)
[2021-12-06] MEDS: DEXTROSE 5% IVPB SCH (17:29)
[2021-12-06] MEDS: WATER IVPB SCH (17:29)
[2021-12-07] MEDS: CEFEPIME 2 GM in DEXTROSE 5%-WATER 100 ML IVPB SCH ×3 (01:23→18:29)
[2021-12-07] MEDS: WATER IVPB SCH ×2 (04:00→18:30)
[2021-12-07] MEDS: DEXTROSE 5% IVPB SCH ×2 (04:00→18:30)
[2021-12-07] MEDS: VORICONAZOLE IVPB SCH ×2 (04:00→18:30)
[2021-12-07] MEDS ORDERED: DEXMEDETOMIDINE PREMIX 400 MCG/100 ML BAG IVPB ONE (04:35)
[2021-12-07 07:53] LABS: CHLORIDE 131 mmol/L (98-107); SODIUM 159 mmol/L (136-145)
[2021-12-07 07:55] LABS: CALCIUM 7.9 mg/dL (8.5-10.1)
[2021-12-07 07:56] LABS: ANION GAP 10 MMOL/L (8-16); CO2 18 mmol/L (21-32); GLUCOSE,RANDOM 170 mg/dL (74-106); HEMATOCRIT 26.6 % (35.4-49); HEMOGLOBIN 8.5 GM/dL (11.7-16.9); MAGNESIUM 3.7 mg/dL (1.8-2.4); MCH 32.7 pg (25.7-33.7); MCHC 31.9 g/dl (32.0-35.9); MEAN CELL VOLUME 102.3 fl (80-96); MEAN PLT VOLUME 9.7 fl (7.5-11.1); RDW 18.6 % (11.9-15.9); WHITE BLOOD COUNT 2.7 K/mm3 (4.0-10.0)
[2021-12-07 07:59] LABS: CREATININE 3.1 mg/dL (0.55-1.3); PHOSPHOROUS 6.6 mg/dL (2.5-4.9); SGOT/AST 33 U/L (15-37); SGPT/ALT 25 U/L (13-61)
[2021-12-07 08:00] LABS: BILIRUBIN,TOTAL 0.7 mg/dL (0.2-1); TOT PROT 4.3 g/dl (6.4-8.2)
[2021-12-07 08:02] LABS: ALK PHOS 225 U/L (45-117)
[2021-12-07] MEDS: AMINO ACIDS/PROTEIN HYDROLYS 30 ML LIQUID.PKT PO SCH (08:09)
[2021-12-07 08:13] LABS: ALBUMIN 1.6 g/dl (3.4-5.0); BLOOD UREA NITROGEN 135.5 mg/dL (7-18)
[2021-12-07 08:50] LABS: PLATELET COUNT 15 10^3/uL (134-434)
[2021-12-07] MEDS: PHENYLEPHRINE NS PREMIX 50,000 MCG/500 ML BAG CVP SCH ×2 (10:16)
[2021-12-07] MEDS: PANTOPRAZOLE SODIUM 40 MG VIAL IVPUSH SCH (10:17)
[2021-12-07] MEDS: MULTIVITAMINS THER W-MINERALS COMBO TABLET (FP) PO SCH (10:17)
[2021-12-07] MEDS: DEXMEDETOMIDINE PREMIX 400 MCG/100 ML BAG IVPB SCH ×2 (10:18→11:16)
[2021-12-07] MEDS ORDERED: MIDAZOLAM HCL 2 MG/2 ML SINGLE DOSE VIAL ONE (11:02)
[2021-12-07] MEDS ORDERED: RAPID SEQUENCE INTUBATION KIT NR ONE (11:02)
[2021-12-07 11:15] LABS: ANISOCYTOSIS 1+; MACROCYTOSIS 1+
[2021-12-07] MEDS ORDERED: ROCURONIUM BROMIDE 50 MG/5 ML VIAL IVPUSH ONE (11:46)
[2021-12-07] MEDS ORDERED: ETOMIDATE 40 MG/20 ML VIAL IVPUSH ONE (11:46)
[2021-12-07] MEDS ORDERED: ROCURONIUM BROMIDE 50 MG/5 ML VIAL ONE (11:52)
[2021-12-07] MEDS ORDERED: MIDAZOLAM HCL 5 MG/1 ML Single Dose Vial ONE (12:07)
[2021-12-07] MEDS ORDERED: PROPOFOL 200 MG/20 ML VIAL IVPUSH ONE ×2 (12:10→12:20)
[2021-12-07] MEDS ORDERED: MIDAZOLAM HCL 2 MG/2 ML SINGLE DOSE VIAL IVPUSH ONE (12:20)
[2021-12-07] MEDS ORDERED: MIDAZOLAM IN 0.9 % SOD.CHLORID 1 MG/1 ML PLAST..BAG ONE (12:21)
[2021-12-07] MEDS ORDERED: SODIUM CHLORIDE 1,000 ML IV STA (12:35)
[2021-12-07] MEDS ORDERED: MIDAZOLAM 100 MG in SODIUM CHLORIDE 100 ML IVPB SCH (13:00)
[2021-12-07] MEDS: MIDAZOLAM IN 0.9 % SOD.CHLORID 100 MG/100 ML PLAST..BAG IVPB SCH (13:00)
[2021-12-07 13:55] LABS: ARTERIAL BLD GAS O2 SATURATION 94.5 % (95-98); ARTERIAL BLOOD GAS BASE EXCESS -18.7 mmol/L (-2-2); ARTERIAL BLOOD GAS PO2 118.4 mmHg (80-100)
[2021-12-07 14:01] LABS: ALLENS TEST POSITIVE; VENT MODE A/C; VENT RATE 20
[2021-12-07 14:38] VITALS: BMI 29.1
[2021-12-07] MEDS ORDERED: INSULIN (NOVOLOG) ASPART 100 UNITS/ML 10ML VIAL SQ ONE (14:44)
[2021-12-07] MEDS ORDERED: DEXTROSE 50%-WATER - 25 GM/50 ML VIAL IVPUSH ONE (14:44)
[2021-12-07] MEDS ORDERED: CALCIUM GLUCONATE 10% - 1,000 MG/10 ML VIAL IVPUSH ONE (14:46)
[2021-12-07] MEDS ORDERED: SODIUM CHLORIDE 0.45% 1,000 ML IV SCH (15:00)
[2021-12-07] MEDS: NOREPINEPHRINE BITARTRATE 16,000 MCG in SODIUM CHLORIDE 484 ML IV SCH (16:00)
[2021-12-07] MEDS: SODIUM ZIRCONIUM CYCLOSILICATE (LOKELMA) 5 GM PACKET PO SCH (16:00)
[2021-12-07 16:42] LABS: ARTERIAL BLD GAS O2 SATURATION 90.5 % (95-98); ARTERIAL BLOOD GAS BASE EXCESS -20.1 mmol/L (-2-2); ARTERIAL BLOOD GAS PO2 94.3 mmHg (80-100)
[2021-12-07 16:44] LABS: VENT MODE AC; VENT RATE 25
[2021-12-07 16:46] LABS: ARTERIAL BLOOD GAS pH 6.916 (7.350-7.450)
[2021-12-07] MEDS ORDERED: DEXTROSE 50%-WATER 25 GM/50 ML DISP.SYRIN ONE ×2 (16:50→22:39)
[2021-12-07] MEDS ORDERED: SODIUM BICARBONATE 8.4% - 50 ML ONE (16:51)
[2021-12-07] MEDS ORDERED: SODIUM BICARBONATE 8.4% 50 MEQ/50 ML VIAL IVPUSH ONE (16:52)
[2021-12-07] MEDS ORDERED: INSULIN REGULAR HUMAN 100 UNITS/ML *VIAL IVPUSH ONE (18:55)
[2021-12-07 19:38] LABS: ARTERIAL BLD GAS O2 SATURATION 92.1 % (95-98); ARTERIAL BLOOD GAS BASE EXCESS -14.3 mmol/L (-2-2); ARTERIAL BLOOD GAS PO2 90.1 mmHg (80-100)
[2021-12-07 19:41] LABS: VENT MODE A/C; VENT RATE 25
[2021-12-07 19:44] LABS: ARTERIAL BLOOD GAS pH 7.035 (7.350-7.450)
[2021-12-07] MEDS ORDERED: VASOPRESSIN 40 UNITS/100 ML BAG IV SCH (20:15)
[2021-12-07] MEDS: AMINO ACIDS 4.25%/D5W 1,000 ML IV SCH (20:44)
[2021-12-07] MEDS: CASPOFUNGIN ACETATE 50 MG in SODIUM CHLORIDE 250 ML IVPB SCH (20:46)
[2021-12-07 20:51] LABS: HEMATOCRIT 24.4 % (35.4-49); HEMOGLOBIN 7.2 GM/dL (11.7-16.9); MCHC 29.7 g/dl (32.0-35.9); MEAN CELL VOLUME 107.6 fl (80-96); MEAN PLT VOLUME 9.2 fl (7.5-11.1); PLATELET COUNT 53 10^3/uL (134-434); RBC 2.26 M/mm3 (4.00-5.60); RDW 19.9 % (11.9-15.9)
[2021-12-07 21:11] LABS: CHLORIDE 132 mmol/L (98-107); SODIUM 159 mmol/L (136-145)
[2021-12-07 21:14] LABS: CALCIUM 7.8 mg/dL (8.5-10.1)
[2021-12-07 21:15] LABS: CO2 17 mmol/L (21-32); GLUCOSE,RANDOM 219 mg/dL (74-106); MAGNESIUM 3.4 mg/dL (1.8-2.4)
[2021-12-07 21:18] LABS: CREATININE 4.1 mg/dL (0.55-1.3)
[2021-12-07 22:13] LABS: ANION GAP 11 MMOL/L (8-16); BLOOD UREA NITROGEN 143.4 mg/dL (7-18); PHOSPHOROUS > 9.0 mg/dL (2.5-4.9)
[2021-12-07] MEDS ORDERED: INSULIN REGULAR HUMAN 100 UNITS/ML *VIAL IVPUSH STA (22:24)
[2021-12-07] MEDS ORDERED: DEXTROSE 50%-WATER - 25 GM/50 ML VIAL IVPUSH STA (22:25)
[2021-12-07] MEDS ORDERED: CALCIUM CHLORIDE 10% 1 GM/10 ML *VIAL IVPB STA (22:26)
[2021-12-07] MEDS ORDERED: CALCIUM GLUCONATE 10% - 1,000 MG/10 ML VIAL IVPB STA (22:28)
[2021-12-07] MEDS ORDERED: SODIUM POLYSTYRENE SULFONATE 15 GM/60 ML BOTTLE NGT STA (22:29)
[2021-12-08] MEDS ORDERED: ACETAMINOPHEN 1000 MG/100 ML BAG IVPB STA (00:18)
[2021-12-08] MEDS: CEFEPIME 2 GM in DEXTROSE 5%-WATER 100 ML IVPB SCH ×2 (01:22→09:13)
[2021-12-08] MEDS: MIDAZOLAM IN 0.9 % SOD.CHLORID 100 MG/100 ML PLAST..BAG IVPB SCH (03:00)
[2021-12-08] MEDS ORDERED: NOREPINEPHRINE BITARTRATE 4 MG/4 ML ML IV ONE (03:34)
[2021-12-08] MEDS: NOREPINEPHRINE BITARTRATE 16,000 MCG in SODIUM CHLORIDE 484 ML IV SCH (04:04)
[2021-12-08] MEDS: VORICONAZOLE IVPB SCH (04:05)
[2021-12-08] MEDS: WATER IVPB SCH (04:05)
[2021-12-08] MEDS: DEXTROSE 5% IVPB SCH (04:05)
[2021-12-08 06:39] LABS: ARTERIAL BLOOD GAS PO2 67.8 mmHg (80-100); ARTERIAL BLOOD GAS pH 6.918 (7.350-7.450)
[2021-12-08 06:53] VITALS: PULSE 108; TEMP 99.4
[2021-12-08 07:07] LABS: ALLENS TEST POSITIVE; VENT MODE AC; VENT RATE 25
[2021-12-08 07:18] LABS: HEMATOCRIT 23.4 % (35.4-49); MCH 32.2 pg (25.7-33.7); MCHC 28.3 g/dl (32.0-35.9); MEAN CELL VOLUME 113.8 fl (80-96); MEAN PLT VOLUME 9.3 fl (7.5-11.1); RBC 2.05 M/mm3 (4.00-5.60); RDW 20.3 % (11.9-15.9); WHITE BLOOD COUNT 2.8 K/mm3 (4.0-10.0)
[2021-12-08 07:37] LABS: CHLORIDE 128 mmol/L (98-107); HEMOGLOBIN 6.6 GM/dL (11.7-16.9); PLATELET COUNT 27 10^3/uL (134-434); SODIUM 154 mmol/L (136-145)
[2021-12-08 07:42] LABS: ALBUMIN 1.3 g/dl (3.4-5.0); CALCIUM 7.5 mg/dL (8.5-10.1); CO2 15 mmol/L (21-32)
[2021-12-08 07:43] LABS: GLUCOSE,RANDOM 255 mg/dL (74-106)
[2021-12-08 07:45] LABS: CREATININE 4.9 mg/dL (0.55-1.3)
[2021-12-08] MEDS ORDERED: SODIUM CHLORIDE 0.45% 1,000 ML IV SCH (07:45)
[2021-12-08 07:46] LABS: SGOT/AST 128 U/L (15-37); SGPT/ALT 42 U/L (13-61)
[2021-12-08 07:47] LABS: BILIRUBIN,TOTAL 0.7 mg/dL (0.2-1); TOT PROT 3.8 g/dl (6.4-8.2)
[2021-12-08 07:55] LABS: ALK PHOS 355 U/L (45-117); ANION GAP 11 MMOL/L (8-16); BLOOD UREA NITROGEN 147.4 mg/dL (7-18)
[2021-12-08] MEDS ORDERED: INSULIN REGULAR HUMAN 100 UNITS/ML *VIAL SQ ONE (08:37)
[2021-12-08] MEDS ORDERED: DEXTROSE 50%-WATER - 25 GM/50 ML VIAL IVPUSH ONE (08:38)
[2021-12-08] MEDS ORDERED: CALCIUM GLUCONATE 10% - 1,000 MG/10 ML VIAL IVPUSH ONE (08:39)
[2021-12-08] MEDS ORDERED: SODIUM BICARBONATE 8.4% 50 MEQ/50 ML VIAL IVPUSH ONE (08:40)
[2021-12-08] MEDS ORDERED: SODIUM POLYSTYRENE SULFONATE 15 GM/60 ML BOTTLE NGT ONE (08:41)
[2021-12-08] MEDS ORDERED: DEXTROSE 50%-WATER 25 GM/50 ML DISP.SYRIN IVPUSH ONE (08:45)
[2021-12-08 08:51] LABS: HELMET CELLS 0; HOWELL-JOLLY BODIES 0; OVALOCYTE 0; ROULEAU 0; SICKELED CELLS 0; TARGET CELLS 0; TEAR DROP CELLS 0; TOXIC GRANULATION 0
[2021-12-08] MEDS: AMINO ACIDS 4.25%/D5W 1,000 ML IV SCH (08:55)
[2021-12-08 09:09] LABS: ANISOCYTOSIS 2+; MACROCYTOSIS 2+
[2021-12-08] MEDS: PANTOPRAZOLE SODIUM 40 MG VIAL IVPUSH SCH (09:13)
[2021-12-08] MEDS: SODIUM ZIRCONIUM CYCLOSILICATE (LOKELMA) 5 GM PACKET PO SCH (09:14)
[2021-12-08] MEDS ORDERED: SODIUM BICARBONATE 8.4% 50 MEQ/50 ML DISP.SYRIN IVPUSH ONE (10:57)
[2021-12-08] MEDS: PHENYLEPHRINE NS PREMIX 50,000 MCG/500 ML BAG CVP SCH (11:26)
[2021-12-08] MEDS ORDERED: SODIUM BICARBONATE 8.4% - 150 MEQ in DEXTROSE 5%-WATER - 950 ML IVPB SCH (11:30)
[2021-12-08 12:28] VITALS: BP 142/40; RESP 20
== END 2021-12-08 13:00 | disposition expired | DRG 871 ==
LOC: FER 14:20 → JICU 11-23 02:24 → J4S 11-26 19:24 → JICU 12-03 09:45
PROVIDERS: ADMIT Internal Medicine Pulmonary Disease; ATTEND Internal Medicine
PROC: 30233R1 Transfusion of Nonautologous Platelets into Peripheral Vein, Percutaneous Approach (ICD-10-PCS; 2021-12-01)
PROC: 05HC33Z Insertion of Infusion Device into Left Basilic Vein, Percutaneous Approach (ICD-10-PCS; principal; 2021-12-06)
PROC: B54NZZA Ultrasonography of Left Upper Extremity Veins, Guidance (ICD-10-PCS; 2021-12-06)
PROC: 0BH17EZ Insertion of Endotracheal Airway into Trachea, Via Natural or Artificial Opening (ICD-10-PCS; 2021-12-07)
PROC: 5A1945Z Respiratory Ventilation, 24-96 Consecutive Hours (ICD-10-PCS; 2021-12-07)
PROC: 04HK33Z Insertion of Infusion Device into Right Femoral Artery, Percutaneous Approach (ICD-10-PCS; 2021-12-08)
PROC: 05HM33Z Insertion of Infusion Device into Right Internal Jugular Vein, Percutaneous Approach (ICD-10-PCS; 2021-12-08)
PROC: B543ZZA Ultrasonography of Right Jugular Veins, Guidance (ICD-10-PCS; 2021-12-08)
DX: A41.89 Other specified sepsis (principal); I46.9 Cardiac arrest, cause unspecified; J80 Acute respiratory distress syndrome; J16.8 Pneumonia due to other specified infectious organisms; I24.8 Other forms of acute ischemic heart disease; B44.9 Aspergillosis, unspecified; D61.818 Other pancytopenia; N17.9 Acute kidney failure, unspecified; R57.9 Shock, unspecified; J90 Pleural effusion, not elsewhere classified; J84.9 Interstitial pulmonary disease, unspecified; E87.2 Acidosis; C83.10 Mantle cell lymphoma, unspecified site; K21.9 Gastro-esophageal reflux disease without esophagitis; E87.5 Hyperkalemia; R41.82 Altered mental status, unspecified; D64.9 Anemia, unspecified; R77.8 Other specified abnormalities of plasma proteins; D75.839 Thrombocytosis, unspecified; Z66 Do not resuscitate
CPT/HCPCS: 0241U-QW; 31500; 32555; 36415; 36430; 36600; 71045-TC-FY; 71046-TC-FY; 71250-TC; 76775-TC; 80048; 80053; 81003; 82042; 82150; 82248; 82272; 82436; 82570; 82803; 82945; 83605; 83615; 83690; 83735; 83880; 83986; 84100; 84133; 84157; 84300; 84478; 84484; 85025; 85027; 85379; 85610; 85730; 86359; 86360; 86480; 86850; 86900; 86901; 86922; 87040; 87070; 87075; 87086; 87102; 87107; 87116; 87205; 87206; 87210; 87389; 87449; 87529; 87633; 87899; 88108; 88305-TC; 93005; 93306-TC; 93970-TC; 94002; 94640; 94660; 97116-GP; 97161-GP; 99291; C9803-CS; J0637; J3490; P9034; P9058; U0003; U0005